=== PATIENT | female | born 1940 | race Caucasian/White ===

== ENCOUNTER 2019-12-26 11:01 | Emergency (ER) | payer MEDICARE, MEDICAID ==
[2019-12-26] MEDS ORDERED: Ondansetron 4 MG/2 ML SDV IVPUSH ONE (11:31)
--- NOTE | 2019-12-26 11:31 | EDM.PDOC ---
ED HPI GENERAL MEDICAL PROBLEM - General Chief Complaint: Abdominal Pain Stated Complaint: Nausea and vomiting Time Seen by Provider: 12/26/19 11:15 Source of Information: Reports: Patient, [facility] Records History Limitations: Reports: Other - History of Present Illness INITIAL COMMENTS - FREE TEXT/NARRATIVE: [facility] from a [facility] pt states she has been having nausea , vomiting and diarrhea for the past 3 days today was weak enough that she fell hitting her knees still retching water stools Fell this am and hit her knees, still has pain but no swelling able to ambulate states she is diabetic has bee using steroid cream on rash on arm and blood sugar levels are elevated last COVID test on sunday was negative Onset: Gradual Onset Date: 12/26/19 Duration: Getting Worse Location: Reports: Upper Extremity, Right, Lower Extremity, Left Quality: Reports: Ache Improves with: Reports: None Worsens with: Reports: None Associated Symptoms: Reports: Loss of Appetite, Malaise, Nausea/Vomiting, Weakness both knees Pain Score (Numeric/FACES): 4 - Related Data Allergies Allergy/AdvReac Type Severity Reaction Status Date / Time No Known Allergies Allergy Verified 06/17/15 15:03 Home Meds: Home Meds Hydrochlorothiazide 12.5 mg PO DAILY 09/01/14 [History] Lisinopril 40 mg PO DAILY 09/01/14 [History] Simvastatin 40 mg PO DAILY 09/01/14 [History] Zolpidem Tartrate [Ambien] 5 - 10 mg PO BEDTIME PRN 09/01/14 [History] metFORMIN HCl [Metformin ER Osmotic] 500 mg PO BID 09/01/14 [History] Cetirizine [ZyrTEC] 10 mg PO DAILY PRN 09/02/14 [History] hydrOXYzine Pamoate [Hydroxyzine Pamoate] 25 mg PO Q4H PRN 06/17/15 [History] Aspirin [Halfprin] 81 mg PO DAILY #90 tab.ec 06/30/15 [Rx] Celecoxib [CeleBREX] 200 mg PO DAILY 12/08/15 [History] Insulin Degludec [Tresiba Flextouch U-200] 50 unit SQ DAILY 12/08/15 [History] Sodium Chloride [Brillion Saline] 1 spr DANN TID 12/09/15 [History] Docusate Sodium [Colace] 100 mg PO BID #60 cap 12/27/15 [Rx] FLUoxetine [PROzac] 10 mg PO BEDTIME #90 cap 12/27/15 [Rx] Insulin Aspart [NovoLOG] See Protocol SUBCUT QIDACANDBED #5 pen 12/27/15 [Rx] Sennosides [Senna] 8.6 mg PO BID PRN #60 tablet 12/27/15 [Rx] Carbamide Peroxide [Debrox 6.5% Otic Soln] 14.8 ml OT QPM #1 bottle 12/26/19 [Rx] Cefuroxime [Ceftin] 250 mg PO BID #20 tab 12/26/19 [Rx] Lactobacillus Acidophilus [Acidophilus Lactobacilli] 1 each PO BID #60 capsule 12/26/19 [Rx] Meclizine [Antivert] 25 mg PO Q6H PRN #30 tab 12/26/19 [Rx] Past Medical History HEENT History: Reports: Hard of Hearing, Impaired Vision, Sinusitis Other HEENT History: reading glasses; 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 Cardiovascular History: Reports: High Cholesterol, Hypertension, SC, Other (See Below) Other Cardiovascular History: says had heart attack, was resuscitated, stated from low potassium Respiratory History: Reports: Asthma, Pneumonia, Recurrent, SOB Gastrointestinal History: Reports: Other (See Below) Other Gastrointestinal History: Diverticulitis Genitourinary History: Reports: UTI, Recurrent CONSULTANT DIETITIAN History: Reports: , Other (See Below) Other CONSULTANT DIETITIAN History: THREE MISCARRIAGES Musculoskeletal History: Reports: Arthritis, Back Pain, Chronic, Other (See Below) Other Musculoskeletal History: GENERALIZED ARTHRITIS for 30years Psychiatric History: Reports: Anxiety, Depression, Other (See Below) Other Psychiatric History: no longer takes meds for this. NO MEDS FOR DEPRESSION AT PRESENT TIME Endocrine/Metabolic History: Reports: Diabetes, Type II Other Endocrine/Metabolic History: takes long acting and will suppliment with novolog if necessary Hematologic History: Reports: None Immunologic History: Reports: Immunosuppression Oncologic (Cancer) History: Reports: Breast Other Oncologic History: melanoma 5-6 years ago Dermatologic History: Reports: Other (See Below) Other Dermatologic History: melanoma removed 5-6 years ago. RASHES UNDERNEATH WAN. BREASTS AT TIMES. NONE AT PRESENT TIME. - Past Surgical History Cardiovascular Surgical History: Reports: Other (See Below) Female Surgical History: Reports: Breast Biopsy, Tubal Ligation Musculoskeletal Surgical History: Reports: Arthroscopic Knee, Knee Replacement, Other (See Below) Oncologic Surgical History: Reports: Lumpectomy, Other (See Below) Social & Family History - Caffeine Use Caffeine Use: Reports: Coffee Caffeine Use Comment: 1 cup of coffee everyday ED ROS GENERAL - Review of Systems Review Of Systems: See Below Constitutional: Reports: Malaise, Weakness, Fatigue HEENT: Reports: No Symptoms Respiratory: Reports: No Symptoms Cardiovascular: Reports: No Symptoms Endocrine: Reports: No Symptoms GI/Abdominal: Reports: No Symptoms : Reports: Frequency Musculoskeletal: Reports: Other (Knee pain , bilateral) Neurological: Reports: No Symptoms Psychiatric: Reports: No Symptoms Hematologic/Lymphatic: Reports: No Symptoms Immunologic: Reports: No Symptoms ED EXAM, GENERAL - Physical Exam Exam: See Below Exam Limited By: No Limitations General Appearance: Alert, WD/WN, No Apparent Distress Eye Exam: Bilateral Eye: EOMI Ears: Normal External Exam Ear Exam: Bilateral Ear: Other (bilateral cerumen impacted in both ear canals) Nose: Normal Inspection Throat/Mouth: Normal Oropharynx Head: Atraumatic, Normocephalic Neck: Supple, Non-Tender Respiratory/Chest: Lungs Clear Cardiovascular: Regular Rate, Rhythm GI/Abdominal: Soft, Non-Tender Extremities: Normal Range of Motion. No: Normal Capillary Refill Neurological: Alert, Oriented, CN II-XII Intact Psychiatric: Normal Affect Skin Exam: Warm Course - Vital Signs Last Recorded V/S: Last Vital Signs Temp 36.1 C 12/26/19 11:01 Pulse 88 12/26/19 11:01 Resp 19 12/26/19 11:01 BP 169/77 H 12/26/19 11:01 Pulse Ox 97 12/26/19 11:01 - Orders/Labs/Meds Orders: Active Orders 24 hr Category Date Time Status EKG Documentation Completion [RC] ASDIRECTED Care 12/26/19 11:06 Active CULTURE URINE [RM] Stat Lab 12/26/19 11:55 Received EKG 12 Lead [EK] Routine Ther 12/26/19 11:06 Ordered Labs: Laboratory Tests 12/26/19 12/26/19 12/26/19 Range/Units 11:25 11:25 11:25 WBC 11.3 (4.5-12.0) X10-3/uL RBC 4.44 (3.23-5.20) x10(6)uL Hgb 13.5 (11.5-15.5) g/dL Hct 40.4 (30.0-51.3) % MCV 90.9 (80-96) fL MCH 30.4 (27.7-33.6) pg MCHC 33.5 (32.2-35.4) g/dL RDW 13.5 (11.5-15.5) % Plt Count 228 (125-369) X10(3)uL PT 10.6 (9.0-11.1) sec INR 0.98 L (1.00-1.24) Sodium 136 (135-145) mmol/L Potassium 3.9 (3.5-5.3) mmol/L Chloride 96 L (100-110) mmol/L Carbon Dioxide 28 (21-32) mmol/L BUN 12 (7-18) mg/dL Creatinine 0.9 (0.55-1.02) mg/dL Est Cr Clr Drug Dosing 35.21 mL/min Estimated GFR (MDRD) > 60 (>60) BUN/Creatinine Ratio 13.3 (9-20) Glucose 167 H (80-116) mg/dL Calcium 9.8 (8.6-10.2) mg/dL Troponin I (4.0-60.3) pg/mL NT-Pro-B Natriuret Pep (<=450) pg/mL Urine Color (YELLOW) Urine Appearance (CLEAR) Urine pH (5.0-6.5) Ur Specific [place] (1.010-1.025) Urine Protein (NEGATIVE) mg/dL Urine Glucose (UA) (NORMAL) mg/dL Urine Ketones (NEGATIVE) mg/dL Urine Occult Blood (NEGATIVE) Urine Nitrite (NEGATIVE) Urine Bilirubin (NEGATIVE) Urine Urobilinogen (NEGATIVE) mg/dL Ur Leukocyte Esterase (NEGATIVE) Urine WBC (0-5) Ur Squamous Epith Cells (NS,R,O) Urine Bacteria (NS) SARS-CoV-2 RNA (IRASEMA) (NEGATIVE) 12/26/19 12/26/19 12/26/19 Range/Units 11:25 11:53 11:55 WBC (4.5-12.0) X10-3/uL RBC (3.23-5.20) x10(6)uL Hgb (11.5-15.5) g/dL Hct (30.0-51.3) % MCV (80-96) fL MCH (27.7-33.6) pg MCHC (32.2-35.4) g/dL RDW (11.5-15.5) % Plt Count (125-369) X10(3)uL PT (9.0-11.1) sec INR (1.00-1.24) Sodium (135-145) mmol/L Potassium (3.5-5.3) mmol/L Chloride (100-110) mmol/L Carbon Dioxide (21-32) mmol/L BUN (7-18) mg/dL Creatinine (0.55-1.02) mg/dL Est Cr Clr Drug Dosing mL/min Estimated GFR (MDRD) (>60) BUN/Creatinine Ratio (9-20) Glucose (80-116) mg/dL Calcium (8.6-10.2) mg/dL Troponin I 27.7 (4.0-60.3) pg/mL NT-Pro-B Natriuret Pep 257 (<=450) pg/mL Urine Color Yellow (YELLOW) Urine Appearance Clear (CLEAR) Urine pH 6.0 (5.0-6.5) Ur Specific [place] 1.010 (1.010-1.025) Urine Protein Negative (NEGATIVE) mg/dL Urine Glucose (UA) Normal (NORMAL) mg/dL Urine Ketones Negative (NEGATIVE) mg/dL Urine Occult Blood Negative (NEGATIVE) Urine Nitrite Negative (NEGATIVE) Urine Bilirubin Negative (NEGATIVE) Urine Urobilinogen Normal (NEGATIVE) mg/dL Ur Leukocyte Esterase Moderate H (NEGATIVE) Urine WBC 40-50 H (0-5) Ur Squamous Epith Cells Few H (NS,R,O) Urine Bacteria Moderate H (NS) SARS-CoV-2 RNA (IRASEMA) Negative (NEGATIVE) Meds: Medications Discontinued Medications Generic Name Dose Route Start Last Admin Trade Name Freq PRN Reason Stop Dose Admin Ceftriaxone Sodium 1 gm/ 50 mls @ 200 mls/hr 12/26/19 12:51 12/26/19 12:59 Sodium Chloride IV 12/26/19 13:05 200 mls/hr ONETIME ONE Administration Meclizine HCl 50 mg 12/26/19 13:57 12/26/19 14:08 Antivert PO 12/26/19 13:58 50 mg ONETIME ONE Administration Ondansetron HCl 4 mg 12/26/19 11:31 12/26/19 11:45 Zofran IVPUSH 12/26/19 11:32 4 mg ONETIME ONE Administration Scopolamine 1.5 mg 12/26/19 14:10 Transderm-Scop TOP 12/26/19 14:11 ONETIME ONE - Re-Assessments/Exams Free Text/Narrative Re-Assessment/Exam: 12/26/19 12:52 had labs done, had IVF and Iv antibiotics fro UTI Given antiemetic 12/26/19 14:00 Multiple attempts made to remove cerumen from both ear s, not very successful Pt will use ear drops and then be seen in clinic to wash/ irrigate ear canals pt also felt dizzy and unstable on feet after standing her up from bed Was given meclizine and that controlled her symptoms 12/26/19 14:12 Departure - Departure Time of Disposition: 14:15 Disposition: Home, Self-Care 01 Condition: Good Clinical Impression: UTI, Urinary tract infectious disease, Nausea & vomiting, Excessive cerumen in both ear canals - Discharge Information *PRESCRIPTION DRUG MONITORING PROGRAM REVIEWED*: Not Applicable *COPY OF PRESCRIPTION DRUG MONITORING REPORT IN PATIENT KRYSTYNA: Not Applicable Prescriptions: Lactobacillus Acidophilus [Acidophilus Lactobacilli] 1 each PO BID #60 capsule Meclizine [Antivert] 25 mg PO Q6H PRN #30 tab PRN Reason: Dizziness Cefuroxime [Ceftin] 250 mg PO BID #20 tab Carbamide Peroxide [Debrox 6.5% Otic Soln] 14.8 ml OT QPM #1 bottle Instructions: Ear Drops, Adult, [id number], Urinary Tract Infection, Adult, [id number], Ear Irrigation Referrals: PCP,None [Ordering Only Provider] - Forms: ED Department Discharge, ED Department Discharge Additional Instructions: 1) make appointment with clinic to get ears irrigated to remove ear wax 2) Await urine culture results 3) continue with increased fluid intake 4) Call with any concerns Sepsis Event Note (ED) - Focused Exam Vital Signs: Vital Signs Temp Pulse Resp BP Pulse Ox 12/26/19 11:01 36.1 C 88 19 169/77 H 97 - My Orders Last 24 Hours: My Active Orders 12/26/19 11:06 EKG Documentation Completion [RC] ASDIRECTED EKG 12 Lead [EK] Routine 12/26/19 11:55 CULTURE URINE [RM] Stat - Assessment/Plan Last 24 Hours: My Active Orders 12/26/19 11:06 EKG Documentation Completion [RC] ASDIRECTED EKG 12 Lead [EK] Routine 12/26/19 11:55 CULTURE URINE [RM] Stat
[2019-12-26 11:36] VITALS: BP 169/77; PULSE 88
--- NOTE | 2019-12-26 12:21 | CR ---
INDICATION: Dizziness. CHEST, ONE VIEW: A single AP upright portable view of the chest was obtained 12/26/19 and compared with 12/12/15 and 09/01/14. The aorta appeared somewhat prominent in size and may be slightly enlarged. The aorta is tortuous with calcification in the arch. Overlying EKG leads are noted. Previous pleuroparenchymal changes at the left lung base have largely cleared with some slightly heavy markings in that area, most likely fibrotic in nature. It is difficult to exclude minimal patchy bronchopneumonia at both lung bases, however. No gross consolidating pneumonia or effusion was seen. Exogenous obesity is noted. IMPRESSION: 1. No definite acute process, but difficult to exclude minimal patchy bronchopneumonia at the lung bases. 2. ASHD with cardiomegaly. 3. Exogenous obesity. MTDD
[2019-12-26] MEDS ORDERED: cefTRIAXone 1 GM in Sodium Chloride 0.9% 50 ML IV ONE (12:51)
[2019-12-26] MEDS ORDERED: Meclizine 25 MG Tab PO ONE (13:57)
[2019-12-26] MEDS ORDERED: Scopolamine 1.5 MG Transdermal Patch TOP ONE (14:10)
== END 2019-12-26 14:20 | disposition home or self-care (01) ==
LOC: FB.ED 11:01
DX: N39.0 Urinary tract infection, site not specified (principal); R11.2 Nausea with vomiting, unspecified; H61.23 Impacted cerumen, bilateral; I10 Essential (primary) hypertension; E78.00 Pure hypercholesterolemia, unspecified; I25.2 Old myocardial infarction; J45.909 Unspecified asthma, uncomplicated; F41.9 Anxiety disorder, unspecified; F32.9 Major depressive disorder, single episode, unspecified; E11.9 Type 2 diabetes mellitus without complications; Z79.4 Long term (current) use of insulin; Z20.828 Contact with and (suspected) exposure to other viral communicable diseases; Z79.82 Long term (current) use of aspirin; Z79.899 Other long term (current) drug therapy; Z98.51 Tubal ligation status; R06.02 Shortness of breath
CPT/HCPCS: 36415; 71045; 80048; 81001; 83880; 84484; 85027; 85610; 87086; 93005; 96365; 96375; 99284; A9270; J0696; J2405; U0002

== ENCOUNTER 2020-01-03 22:01 | Inpatient (IN) | payer MEDICARE, MEDICAID ==
--- NOTE | 2020-01-03 22:46 | EDM.PDOC ---
ED HPI GENERAL MEDICAL PROBLEM - General Chief Complaint: Neuro Symptoms/Deficits Time Seen by Provider: 01/03/20 22:44 Source of Information: Reports: Old Records History Limitations: Reports: Other (Hard of hearing) - History of Present Illness INITIAL COMMENTS - FREE TEXT/NARRATIVE: Jessica is from the [facility] .She complains of dysphagia and slurred speech since yesterday. No fever,no cough. Was seen yesterday at the [facility] and [facility] a CT done,results were negve. She has a h/o anxiety and depression. - Related Data Allergies Allergy/AdvReac Type Severity Reaction Status Date / Time No Known Allergies Allergy Verified 01/03/20 22:16 Home Meds: Home Meds Hydrochlorothiazide 12.5 mg PO DAILY 09/01/14 [History] Lisinopril 40 mg PO DAILY 09/01/14 [History] Simvastatin 40 mg PO BEDTIME 09/01/14 [History] metFORMIN HCl [Metformin ER Osmotic] 500 mg PO BID 09/01/14 [History] Cetirizine [ZyrTEC] 10 mg PO DAILY 09/02/14 [History] Aspirin [Halfprin] 81 mg PO DAILY #90 tab.ec 06/30/15 [Rx] Insulin Degludec [Tresiba Flextouch U-200] 65 unit SQ 0730 12/08/15 [History] Carbamide Peroxide [Debrox 6.5% Otic Soln] 14.8 ml OT QPM #1 bottle 12/26/19 [Rx] Cefuroxime [Ceftin] 250 mg PO BID #20 tab 12/26/19 [Rx] Lactobacillus Acidophilus [Acidophilus Lactobacilli] 1 each PO BID #60 capsule 12/26/19 [Rx] Meclizine [Antivert] 25 mg PO Q6H PRN #30 tab 12/26/19 [Rx] cephALEXin [Cephalexin] 500 mg PO TID #21 tablet 01/04/20 [Rx] cephALEXin [Cephalexin] 500 mg PO TID #21 tablet 01/04/20 [Rx] Acetaminophen 650 mg PO BEDTIME 01/05/20 [History] Acetaminophen 650 mg PO Q4H PRN MDD 3 gm 01/05/20 [History] Aloe Vera/Sodium Chloride [Baden Saline Nasal Gel] 1 applic DANN TID 01/05/20 [History] Betamethasone Dipropionate [Diprosone 0.05% Oint] 1 applic TOP BID 01/05/20 [History] Cyclobenzaprine [Flexeril] 10 mg PO BEDTIME 01/05/20 [History] Docusate Sodium [Colace] 100 mg PO DAILY 01/05/20 [History] Insulin Aspart [NovoLOG] 20 units SQ ACDINNER 01/05/20 [History] Insulin Aspart [NovoLOG] 25 units SQ 0730,1130 01/05/20 [History] Loperamide [Imodium] 2 mg PO ASDIRECTED PRN MDD 8MG 01/05/20 [History] Mag Hydrox/Aluminum Hyd/Simeth [Mylanta Maximum Strength Liq] 10 ml PO QID PRN 01/05/20 [History] Magnesium Hydroxide [Milk of Magnesia] 30 ml PO DAILY PRN 01/05/20 [History] Melatonin 10 mg PO BEDTIME 01/05/20 [History] Mirtazapine 15 mg PO BEDTIME 01/05/20 [History] Simethicone 80 mg CHEW DAILY 01/05/20 [History] bisacodyL [Dulcolax] 10 mg RECTAL Q3D PRN 01/05/20 [History] guaiFENesin [Robitussin] 10 ml PO Q4H PRN 01/05/20 [History] Past Medical History HEENT History: Reports: Hard of Hearing, Impaired Vision, Sinusitis Other HEENT History: reading glasses; 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 Cardiovascular History: Reports: High Cholesterol, Hypertension, [place], Other (See Below) Other Cardiovascular History: says had heart attack, was resuscitated, stated from low potassium Respiratory History: Reports: Asthma, Pneumonia, Recurrent, SOB Gastrointestinal History: Reports: Other (See Below) Other Gastrointestinal History: Diverticulitis Genitourinary History: Reports: UTI, Recurrent HAM TRIMMER History: Reports: , Other (See Below) Other HAM TRIMMER History: THREE MISCARRIAGES Musculoskeletal History: Reports: Arthritis, Back Pain, Chronic, Other (See Below) Other Musculoskeletal History: GENERALIZED ARTHRITIS for 30years Psychiatric History: Reports: Anxiety, Depression, Other (See Below) Other Psychiatric History: no longer takes meds for this. NO MEDS FOR DEPRESSION AT PRESENT TIME Endocrine/Metabolic History: Reports: Diabetes, Type II Other Endocrine/Metabolic History: takes long acting and will suppliment with novolog if necessary Hematologic History: Reports: None Immunologic History: Reports: Immunosuppression Oncologic (Cancer) History: Reports: Breast Other Oncologic History: melanoma 5-6 years ago Dermatologic History: Reports: Other (See Below) Other Dermatologic History: melanoma removed 5-6 years ago. RASHES UNDERNEATH WAN. BREASTS AT TIMES. NONE AT PRESENT TIME. - Past Surgical History Cardiovascular Surgical History: Reports: Other (See Below) Female Surgical History: Reports: Breast Biopsy, Tubal Ligation Musculoskeletal Surgical History: Reports: Arthroscopic Knee, Knee Replacement, Other (See Below) Oncologic Surgical History: Reports: Lumpectomy, Other (See Below) Social & Family History - Caffeine Use Caffeine Use: Reports: Coffee Caffeine Use Comment: 1 cup of coffee everyday ED ROS GENERAL - Review of Systems Review Of Systems: Comprehensive ROS is negative, except as noted in HPI. ED EXAM, NEURO - Physical Exam Exam: See Below Exam Limited By: No Limitations General Appearance: Alert Ears: Normal External Exam, Normal TMs Throat/Mouth: Normal Inspection, Dysphagia Head Exam: Atraumatic Neck: Normal Inspection Respiratory/Chest: No Respiratory Distress Neurological: Alert, Other (Slurred speech) Back Exam: Normal Inspection Extremities: Normal Inspection Psychiatric: Normal Affect Skin Exam: Warm Course - Vital Signs Last Recorded V/S: Last Vital Signs Temp 97.9 F 01/05/20 16:00 Pulse 72 01/05/20 16:00 Resp 16 01/05/20 16:00 BP 159/65 H 01/05/20 16:00 Pulse Ox 96 01/05/20 16:00 - Orders/Labs/Meds Orders: Medication Orders Dexamethasone (Decadron) 6 mg IVPUSH DAILY [facility] Stop: 01/07/20 09:01 Dextrose/Water (Dextrose 50% In Water) 50 ml IVPUSH ASDIRECTED PRN PRN Reason: Hypoglycemia Diphenhydramine HCl (Benadryl) 25 mg IVPUSH Q6H PRN PRN Reason: Allergies Last Admin: 01/04/20 13:25 Dose: 25 mg Documented by: WILLIAMS Enoxaparin Sodium (Lovenox) 40 mg SUBCUT Q24H ZION Last Admin: 01/05/20 13:06 Dose: 40 mg Documented by: Admin: 01/04/20 13:24 Dose: 40 mg Documented by: WILLIAMS Glucagon (Glucagen) 1 mg IM ASDIRECTED PRN PRN Reason: Hypoglycemia Sodium Chloride (Normal Saline) 1,000 mls @ 100 mls/hr IV ASDIRECTED [facility] Last Admin: 01/05/20 10:17 Dose: 100 mls/hr Documented by: Infusion: 01/05/20 10:13 Dose: 100 mls/hr Documented by: Admin: 01/05/20 00:13 Dose: 100 mls/hr Documented by: Infusion: 01/04/20 23:25 Dose: 100 mls/hr Documented by: Admin: 01/04/20 13:25 Dose: 100 mls/hr Documented by: WILLIAMS Ampicillin Sodium/Sulbactam (Sodium 1.5 gm/ Sodium Chloride) 50 mls @ 150 mls/hr IV Q8H [facility] Last Admin: 01/05/20 13:00 Dose: 150 mls/hr Documented by: Admin: 01/05/20 05:05 Dose: 150 mls/hr Documented by: Admin: 01/04/20 21:13 Dose: 150 mls/hr Documented by: DALTON Insulin Human Lispro (Humalog) 0 unit SUBCUT TIDMEALS [facility]; Protocol Last Admin: 01/05/20 18:01 Dose: 8 units Documented by: GUILLERMO Cosigned by: ARMINDA Admin: 01/05/20 13:09 Dose: 3 units Documented by: GUILLERMO Cosigned by: ARMINDA Sodium Chloride (Saline Flush) 10 ml FLUSH ASDIRECTED PRN PRN Reason: Keep Vein Open Last Admin: 01/04/20 13:24 Dose: 10 ml Documented by: Admin: 01/04/20 09:30 Dose: 10 ml Documented by: DONOVAN Labs: Laboratory Tests 01/03/20 01/03/20 01/03/20 Range/Units 22:17 22:20 22:20 WBC 15.9 H (3.0-10.3) x10-3/uL RBC 4.47 (3.60-5.20) x10(6)uL Hgb 13.4 (11.4-15.5) g/dL Hct 40.5 (34.2-48.2) % MCV 90.7 (76.7-100.5) fL MCH 30.0 (23.9-33.9) pg MCHC 33.1 (31.9-34.8) g/dL RDW 14.3 (12.3-16.5) % Plt Count 227 (151-488) x10(3)uL MPV 8.4 (7.1-12.4) fL Neut % (Auto) 78.0 H (30.8-76.2) % Lymph % (Auto) 15.3 L (18.4-52.1) % Meigs % (Auto) 5.6 (4.4-15.7) % Eos % (Auto) 0.8 (0.6-8.1) % Baso % (Auto) 0.3 (0.2-1.5) % Neut # (Auto) 12.4 H (1.5-6.3) x10-3/uL Lymph # (Auto) 2.4 (1.0-4.4) x10-3/uL Meigs # (Auto) 0.9 (0.3-1.0) x10-3/uL Eos # (Auto) 0.1 (0.0-0.8) x10-3/uL Baso # (Auto) 0.0 (0.0-0.1) x10-3/uL Sodium 135 (135-145) mmol/L Potassium 4.0 (3.5-5.3) mmol/L Chloride 97 L (100-110) mmol/L Carbon Dioxide 28 (21-32) mmol/L BUN 13 (7-18) mg/dL Creatinine 1.0 (0.55-1.02) mg/dL Est Cr Clr Drug Dosing 38.10 mL/min Estimated GFR (MDRD) 53 L (>60) BUN/Creatinine Ratio 13.0 (9-20) Glucose 169 H (80-116) mg/dL POC Glucose 145 H (74-100) mg/dL Lactic Acid (0.4-2.0) mmol/L Calcium 9.7 (8.6-10.2) mg/dL Total Bilirubin 0.5 (0.1-1.3) mg/dL AST 26 H (5-25) IU/L ALT 41 H (12-36) U/L Alkaline Phosphatase 76 (56-112) IU/L Troponin I (4.0-60.3) pg/mL C-Reactive Protein (0.5-0.9) mg/dL Total Protein 7.2 (6.0-8.0) g/dL Albumin 3.5 (3.2-4.6) g/dL Globulin 3.7 g/dL Albumin/Globulin Ratio 1.0 SARS-CoV-2 RNA (IRASEMA) (NEGATIVE) Group A Strep (PCR) (NEGATIVE) 01/03/20 01/03/20 01/03/20 Range/Units 22:20 22:20 22:20 WBC (3.0-10.3) x10-3/uL RBC (3.60-5.20) x10(6)uL Hgb (11.4-15.5) g/dL Hct (34.2-48.2) % MCV (76.7-100.5) fL MCH (23.9-33.9) pg MCHC (31.9-34.8) g/dL RDW (12.3-16.5) % Plt Count (151-488) x10(3)uL MPV (7.1-12.4) fL Neut % (Auto) (30.8-76.2) % Lymph % (Auto) (18.4-52.1) % Meigs % (Auto) (4.4-15.7) % Eos % (Auto) (0.6-8.1) % Baso % (Auto) (0.2-1.5) % Neut # (Auto) (1.5-6.3) x10-3/uL Lymph # (Auto) (1.0-4.4) x10-3/uL Meigs # (Auto) (0.3-1.0) x10-3/uL Eos # (Auto) (0.0-0.8) x10-3/uL Baso # (Auto) (0.0-0.1) x10-3/uL Sodium (135-145) mmol/L Potassium (3.5-5.3) mmol/L Chloride (100-110) mmol/L Carbon Dioxide (21-32) mmol/L BUN (7-18) mg/dL Creatinine (0.55-1.02) mg/dL Est Cr Clr Drug Dosing mL/min Estimated GFR (MDRD) (>60) BUN/Creatinine Ratio (9-20) Glucose (80-116) mg/dL POC Glucose (74-100) mg/dL Lactic Acid 2.7 H* (0.4-2.0) mmol/L Calcium (8.6-10.2) mg/dL Total Bilirubin (0.1-1.3) mg/dL AST (5-25) IU/L ALT (12-36) U/L Alkaline Phosphatase (56-112) IU/L Troponin I 22.7 (4.0-60.3) pg/mL C-Reactive Protein 0.9 (0.5-0.9) mg/dL Total Protein (6.0-8.0) g/dL Albumin (3.2-4.6) g/dL Globulin g/dL Albumin/Globulin Ratio SARS-CoV-2 RNA (IRASEMA) (NEGATIVE) Group A Strep (PCR) (NEGATIVE) 01/03/20 01/04/20 Range/Units 23:50 09:00 WBC (3.0-10.3) x10-3/uL RBC (3.60-5.20) x10(6)uL Hgb (11.4-15.5) g/dL Hct (34.2-48.2) % MCV (76.7-100.5) fL MCH (23.9-33.9) pg MCHC (31.9-34.8) g/dL RDW (12.3-16.5) % Plt Count (151-488) x10(3)uL MPV (7.1-12.4) fL Neut % (Auto) (30.8-76.2) % Lymph % (Auto) (18.4-52.1) % Meigs % (Auto) (4.4-15.7) % Eos % (Auto) (0.6-8.1) % Baso % (Auto) (0.2-1.5) % Neut # (Auto) (1.5-6.3) x10-3/uL Lymph # (Auto) (1.0-4.4) x10-3/uL Meigs # (Auto) (0.3-1.0) x10-3/uL Eos # (Auto) (0.0-0.8) x10-3/uL Baso # (Auto) (0.0-0.1) x10-3/uL Sodium (135-145) mmol/L Potassium (3.5-5.3) mmol/L Chloride (100-110) mmol/L Carbon Dioxide (21-32) mmol/L BUN (7-18) mg/dL Creatinine (0.55-1.02) mg/dL Est Cr Clr Drug Dosing mL/min Estimated GFR (MDRD) (>60) BUN/Creatinine Ratio (9-20) Glucose (80-116) mg/dL POC Glucose (74-100) mg/dL Lactic Acid (0.4-2.0) mmol/L Calcium (8.6-10.2) mg/dL Total Bilirubin (0.1-1.3) mg/dL AST (5-25) IU/L ALT (12-36) U/L Alkaline Phosphatase (56-112) IU/L Troponin I (4.0-60.3) pg/mL C-Reactive Protein (0.5-0.9) mg/dL Total Protein (6.0-8.0) g/dL Albumin (3.2-4.6) g/dL Globulin g/dL Albumin/Globulin Ratio SARS-CoV-2 RNA (IRASEMA) Negative (NEGATIVE) Group A Strep (PCR) Negative (NEGATIVE) Meds: Medications Generic Name Dose Route Start Last Admin Trade Name Freq PRN Reason Stop Dose Admin Dexamethasone 6 mg 01/06/20 09:00 Decadron IVPUSH 01/07/20 09:01 DAILY ZION Dextrose/Water 50 ml 01/05/20 11:41 Dextrose 50% In Water IVPUSH ASDIRECTED PRN Hypoglycemia Diphenhydramine HCl 25 mg 01/04/20 12:07 01/04/20 13:25 Benadryl IVPUSH 25 mg Q6H PRN Administration Allergies Enoxaparin Sodium 40 mg 01/04/20 12:30 01/05/20 13:06 Lovenox SUBCUT 40 mg Q24H ZION Administration Glucagon 1 mg 01/05/20 11:41 Glucagen IM ASDIRECTED PRN Hypoglycemia Sodium Chloride 1,000 mls @ 100 mls/hr 01/04/20 12:15 01/05/20 10:17 Normal Saline IV 100 mls/hr ASDIRECTED ZION Administration Ampicillin Sodium/Sulbactam 50 mls @ 150 mls/hr 01/04/20 21:00 01/05/20 13:00 Sodium 1.5 gm/ Sodium Chloride IV 150 mls/hr Q8H ZION Administration Insulin Human Lispro 0 unit 01/05/20 12:00 01/05/20 18:01 Humalog SUBCUT 8 units TIDMEALS ZION Administration Protocol Sodium Chloride 10 ml 01/03/20 22:42 01/04/20 13:24 Saline Flush FLUSH 10 ml ASDIRECTED PRN Administration Keep Vein Open Discontinued Medications Generic Name Dose Route Start Last Admin Trade Name Freq PRN Reason Stop Dose Admin Ceftriaxone Sodium 1 gm 01/04/20 00:07 01/04/20 00:19 Rocephin IVPUSH 01/04/20 00:08 1 gm NOW STA Administration Dexamethasone 8 mg 01/04/20 09:00 01/04/20 09:27 Decadron IVPUSH 01/04/20 09:01 8 mg ONETIME ONE Administration Dexamethasone 6 mg 01/05/20 09:00 01/05/20 09:37 Dexamethasone IVPUSH 01/07/20 09:01 6 mg DAILY ZION Administration Sodium Chloride 500 mls @ 500 mls/hr 01/04/20 00:03 01/04/20 00:10 Normal Saline IV 01/04/20 01:02 500 mls/hr .BOLUS ONE Administration Ampicillin Sodium/Sulbactam 50 mls @ 150 mls/hr 01/04/20 13:00 01/04/20 21:41 Sodium 1.5 gm/ Sodium Chloride IV Not Given Q8H [facility]ION Iopamidol 75 ml 01/03/20 23:08 01/03/20 23:12 Isovue-370 (76%) IV 01/03/20 23:09 Not Given ONETIME ONE Iopamidol 100 ml 01/03/20 23:13 01/03/20 23:15 Isovue-370 (76%) IV 01/03/20 23:14 75 ml ONETIME ONE Administration Departure - Departure Time of Disposition: 19:09 Disposition: Admitted As Inpatient 64 Clinical Impression: Dysphagia - Discharge Information Sepsis Event Note (ED) - Evaluation Sepsis Screening Result: No Definite Risk - Problem List & Annotations (1) Dysphagia SNOMED Code(s): 10905653, 096447205 Code(s): R13.10 - DYSPHAGIA, UNSPECIFIED Status: Acute Current Visit: Yes Qualifiers: Dysphagia type: oral phase Qualified Code(s): R13.11 - Dysphagia, oral phase (2) Slurred speech SNOMED Code(s): 399612680 Code(s): R47.81 - SLURRED SPEECH Status: Acute Current Visit: Yes - Problem List Review Problem List Initiated/Reviewed/Updated: Yes - Assessment/Plan Plan: 500 mg IV NS. 1 g of Rocephin.Possible admit
[2020-01-03] MEDS ORDERED: Iopamidol 755 Mg/ML 75 ML Bottle IV ONE (23:08)
[2020-01-03] MEDS ORDERED: Iopamidol 755 Mg/ML 100 ML Bottle IV ONE (23:13)
[2020-01-04] MEDS ORDERED: Sodium Chloride 0.9% 500 ML IV ONE (00:03)
[2020-01-04] MEDS ORDERED: cefTRIAXone 1 GM Vial IVPUSH STA (00:07)
--- NOTE | 2020-01-04 08:59 | PCM.SN.2 ---
- Free Text/Narrative Note: 79-year-old female was seen by Dr. Puckett for dysphagia. She is really unable to swallow anything area in the etiology of her dysphagia is not known what it is felt that it may be infectious or inflammatory secondary to some mild inflammation of the uvula area as seen on CT scan of her neck. It could also be an acute stroke that was not seen on CT. In any event, the patient cannot be discharged. She will need admission for IV fluids and IV antibiotics and IV steroids for PT and OT and speech. This plan of care will require at least a 2 midnight hospital stay. Therefore the patient will be admitted as an inpatient. I did call and discuss the patient's case with Dr. Alfaro, hospitalist, and she will admit the patient. I am sending testing for Covid now. The patient has received Rocephin 1 g IV. I will also give the patient Decadron 8 mg IV. Further orders per Dr. Alfaro.
[2020-01-04] MEDS ORDERED: Dexamethasone 4 MG/ML SDV IVPUSH ONE (09:00)
[2020-01-04] MEDS: Sodium Chloride 0.9% 10 ML Syringe FLUSH PRN ×2 (09:30→13:24)
--- NOTE | 2020-01-04 12:18 | PCM.HP.2 ---
H&P History of Present Illness - General Date of Service: 01/04/20 Admit Problem/Dx: Admission Diagnosis/Problem Admission Diagnosis/Problem Dysphagia Source of Information: Patient (limited), EMS Notes Reviewed, Provider History Limitations: Reports: Physical Impairment (HARD OF HEARING, ) - History of Present Illness Initial Comments - Free Text/Narative: Jessica is from the [facility]. She complains of dysphagia and slurred speech since Sunday. No fever, no cough reported to ER. Was seen 12/31 at the [facility] and had a CT done, results were negitive, had ear irrigated and was treated for tonsillitis. She has a h/o anxiety, depression, hypertension, allergies. History limited as patient very hard of hearing and difficult to understand her speech. No facial droop reported. [facility] staff reported decreased intake and progressive weakness. CT head negative for stroke, soft neck showed swelling of uvula, no tonsillar enlargement, no esophageal mass. CXR negative. Covid negative. Received Rocephin 1 g and Dexamethasone 8 mg IV in ER. - Related Data Allergies/Adverse Reactions: Allergies Allergy/AdvReac Type Severity Reaction Status Date / Time No Known Allergies Allergy Verified 01/03/20 22:16 Home Medications: Home Meds Hydrochlorothiazide 12.5 mg PO DAILY 09/01/14 [History] Lisinopril 40 mg PO DAILY 09/01/14 [History] Simvastatin 40 mg PO DAILY 09/01/14 [History] Zolpidem Tartrate [Ambien] 5 - 10 mg PO BEDTIME PRN 09/01/14 [History] metFORMIN HCl [Metformin ER Osmotic] 500 mg PO BID 09/01/14 [History] Cetirizine [ZyrTEC] 10 mg PO DAILY PRN 09/02/14 [History] hydrOXYzine Pamoate [Hydroxyzine Pamoate] 25 mg PO Q4H PRN 06/17/15 [History] Aspirin [Halfprin] 81 mg PO DAILY #90 tab.ec 06/30/15 [Rx] Celecoxib [CeleBREX] 200 mg PO DAILY 12/08/15 [History] Insulin Degludec [Tresiba Flextouch U-200] 50 unit SQ DAILY 12/08/15 [History] Sodium Chloride [Goddard Saline] 1 spr DANN TID 12/09/15 [History] Docusate Sodium [Colace] 100 mg PO BID #60 cap 12/27/15 [Rx] FLUoxetine [PROzac] 10 mg PO BEDTIME #90 cap 12/27/15 [Rx] Insulin Aspart [NovoLOG] See Protocol SUBCUT QIDACANDBED #5 pen 12/27/15 [Rx] Sennosides [Senna] 8.6 mg PO BID PRN #60 tablet 12/27/15 [Rx] Carbamide Peroxide [Debrox 6.5% Otic Soln] 14.8 ml OT QPM #1 bottle 12/26/19 [Rx] Cefuroxime [Ceftin] 250 mg PO BID #20 tab 12/26/19 [Rx] Lactobacillus Acidophilus [Acidophilus Lactobacilli] 1 each PO BID #60 capsule 12/26/19 [Rx] Meclizine [Antivert] 25 mg PO Q6H PRN #30 tab 12/26/19 [Rx] cephALEXin [Cephalexin] 500 mg PO TID #21 tablet 01/04/20 [Rx] cephALEXin [Cephalexin] 500 mg PO TID #21 tablet 01/04/20 [Rx] Past Medical History HEENT History: Reports: Hard of Hearing, Impaired Vision, Sinusitis Other HEENT History: reading glasses; 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 Cardiovascular History: Reports: High Cholesterol, Hypertension, MS, Other (See Below) Other Cardiovascular History: says had heart attack, was resuscitated, stated from low potassium Respiratory History: Reports: Asthma, Pneumonia, Recurrent, SOB Gastrointestinal History: Reports: Other (See Below) Other Gastrointestinal History: Diverticulitis Genitourinary History: Reports: UTI, Recurrent TRANSFER SPECIALIST History: Reports: , Other (See Below) Other OB/BYN History: THREE MISCARRIAGES Musculoskeletal History: Reports: Arthritis, Back Pain, Chronic, Other (See Below) Other Musculoskeletal History: GENERALIZED ARTHRITIS for 30years Psychiatric History: Reports: Anxiety, Depression, Other (See Below) Other Psychiatric History: no longer takes meds for this. NO MEDS FOR DEPRESSION AT PRESENT TIME Endocrine/Metabolic History: Reports: Diabetes, Type II Other Endocrine/Metabolic History: takes long acting and will suppliment with n ovolog if necessary Hematologic History: Reports: None Immunologic History: Reports: Immunosuppression Oncologic (Cancer) History: Reports: Breast Other Oncologic History: melanoma 5-6 years ago Dermatologic History: Reports: Other (See Below) Other Dermatologic History: melanoma removed 5-6 years ago. RASHES UNDERNEATH WAN. BREASTS AT TIMES. NONE AT PRESENT TIME. - Past Surgical History Cardiovascular Surgical History: Reports: Other (See Below) Female Surgical History: Reports: Breast Biopsy, Tubal Ligation Musculoskeletal Surgical History: Reports: Arthroscopic Knee, Knee Replacement, Other (See Below) Oncologic Surgical History: Reports: Lumpectomy, Other (See Below) Social & Family History - Family History Family Medical History: Unobtainable - Tobacco Use Tobacco Use Status *Q: Unknown Ever Used Tobacco - Caffeine Use Caffeine Use: Reports: Coffee Caffeine Use Comment: 1 cup of coffee everyday H&P Review of Systems - Review of Systems: Review Of Systems: Unable To Obtain Reason Not Obtained: hard of hearing Exam - Exam Exam: See Below - Vital Signs Vital Signs: Last Vital Signs Temp 98.1 F 01/04/20 11:55 Pulse 89 01/04/20 11:55 Resp 16 01/04/20 11:55 BP 163/81 H 01/04/20 11:55 Pulse Ox 93 L 01/04/20 11:55 Weight: 182 lb - Exam General: Alert, Cooperative. No: Mild Distress HEENT: PERRLA, Conjunctiva Clear, Nares Patent, Other (Dry mucosa, tongue enlarged, cannot visualize uvula and posterior pharynx). No: Hearing Intact Neck: Supple, Trachea Midline, Lymphadenopathy Lungs: Clear to Auscultation, Normal Respiratory Effort Cardiovascular: Regular Rate, Regular Rhythm GI/Abdominal Exam: Normal Bowel Sounds, Soft, Non-Tender, No Distention (Female) Exam: Deferred Rectal (Female) Exam: Deferred Extremities: No Pedal Edema Peripheral Pulses: 2+: Radial (L), Radial (R) Skin: Warm, Dry, Other (surgical scar on right knee) - Patient Data Lab Results Last 24 hrs: Laboratory Results - last 24 hr 01/03/20 01/03/20 01/03/20 Range/Units 22:17 22:20 22:20 WBC 15.9 H (3.0-10.3) x10-3/uL RBC 4.47 (3.60-5.20) x10(6)uL Hgb 13.4 (11.4-15.5) g/dL Hct 40.5 (34.2-48.2) % MCV 90.7 (76.7-100.5) fL MCH 30.0 (23.9-33.9) pg MCHC 33.1 (31.9-34.8) g/dL RDW 14.3 (12.3-16.5) % Plt Count 227 (151-488) x10(3)uL MPV 8.4 (7.1-12.4) fL Neut % (Auto) 78.0 H (30.8-76.2) % Lymph % (Auto) 15.3 L (18.4-52.1) % [place] % (Auto) 5.6 (4.4-15.7) % Eos % (Auto) 0.8 (0.6-8.1) % Baso % (Auto) 0.3 (0.2-1.5) % Neut # (Auto) 12.4 H (1.5-6.3) x10-3/uL Lymph # (Auto) 2.4 (1.0-4.4) x10-3/uL [place] # (Auto) 0.9 (0.3-1.0) x10-3/uL Eos # (Auto) 0.1 (0.0-0.8) x10-3/uL Baso # (Auto) 0.0 (0.0-0.1) x10-3/uL Sodium 135 (135-145) mmol/L Potassium 4.0 (3.5-5.3) mmol/L Chloride 97 L (100-110) mmol/L Carbon Dioxide 28 (21-32) mmol/L BUN 13 (7-18) mg/dL Creatinine 1.0 (0.55-1.02) mg/dL Est Cr Clr Drug Dosing 38.10 mL/min Estimated GFR (MDRD) 53 L (>60) BUN/Creatinine Ratio 13.0 (9-20) Glucose 169 H (80-116) mg/dL POC Glucose 145 H (74-100) mg/dL Lactic Acid (0.4-2.0) mmol/L Calcium 9.7 (8.6-10.2) mg/dL Total Bilirubin 0.5 (0.1-1.3) mg/dL AST 26 H (5-25) IU/L ALT 41 H (12-36) U/L Alkaline Phosphatase 76 (56-112) IU/L Troponin I (4.0-60.3) pg/mL C-Reactive Protein (0.5-0.9) mg/dL Total Protein 7.2 (6.0-8.0) g/dL Albumin 3.5 (3.2-4.6) g/dL Globulin 3.7 g/dL Albumin/Globulin Ratio 1.0 SARS-CoV-2 RNA (IRASEMA) (NEGATIVE) Group A Strep (PCR) (NEGATIVE) 01/03/20 01/03/20 01/03/20 Range/Units 22:20 22:20 22:20 WBC (3.0-10.3) x10-3/uL RBC (3.60-5.20) x10(6)uL Hgb (11.4-15.5) g/dL Hct (34.2-48.2) % MCV (76.7-100.5) fL MCH (23.9-33.9) pg MCHC (31.9-34.8) g/dL RDW (12.3-16.5) % Plt Count (151-488) x10(3)uL MPV (7.1-12.4) fL Neut % (Auto) (30.8-76.2) % Lymph % (Auto) (18.4-52.1) % [place] % (Auto) (4.4-15.7) % Eos % (Auto) (0.6-8.1) % Baso % (Auto) (0.2-1.5) % Neut # (Auto) (1.5-6.3) x10-3/uL Lymph # (Auto) (1.0-4.4) x10-3/uL [place] # (Auto) (0.3-1.0) x10-3/uL Eos # (Auto) (0.0-0.8) x10-3/uL Baso # (Auto) (0.0-0.1) x10-3/uL Sodium (135-145) mmol/L Potassium (3.5-5.3) mmol/L Chloride (100-110) mmol/L Carbon Dioxide (21-32) mmol/L BUN (7-18) mg/dL Creatinine (0.55-1.02) mg/dL Est Cr Clr Drug Dosing mL/min Estimated GFR (MDRD) (>60) BUN/Creatinine Ratio (9-20) Glucose (80-116) mg/dL POC Glucose (74-100) mg/dL Lactic Acid 2.7 H* (0.4-2.0) mmol/L Calcium (8.6-10.2) mg/dL Total Bilirubin (0.1-1.3) mg/dL AST (5-25) IU/L ALT (12-36) U/L Alkaline Phosphatase (56-112) IU/L Troponin I 22.7 (4.0-60.3) pg/mL C-Reactive Protein 0.9 (0.5-0.9) mg/dL Total Protein (6.0-8.0) g/dL Albumin (3.2-4.6) g/dL Globulin g/dL Albumin/Globulin Ratio SARS-CoV-2 RNA (IRASEMA) (NEGATIVE) Group A Strep (PCR) (NEGATIVE) 01/03/20 01/04/20 Range/Units 23:50 09:00 WBC (3.0-10.3) x10-3/uL RBC (3.60-5.20) x10(6)uL Hgb (11.4-15.5) g/dL Hct (34.2-48.2) % MCV (76.7-100.5) fL MCH (23.9-33.9) pg MCHC (31.9-34.8) g/dL RDW (12.3-16.5) % Plt Count (151-488) x10(3)uL MPV (7.1-12.4) fL Neut % (Auto) (30.8-76.2) % Lymph % (Auto) (18.4-52.1) % [place] % (Auto) (4.4-15.7) % Eos % (Auto) (0.6-8.1) % Baso % (Auto) (0.2-1.5) % Neut # (Auto) (1.5-6.3) x10-3/uL Lymph # (Auto) (1.0-4.4) x10-3/uL [place] # (Auto) (0.3-1.0) x10-3/uL Eos # (Auto) (0.0-0.8) x10-3/uL Baso # (Auto) (0.0-0.1) x10-3/uL Sodium (135-145) mmol/L Potassium (3.5-5.3) mmol/L Chloride (100-110) mmol/L Carbon Dioxide (21-32) mmol/L BUN (7-18) mg/dL Creatinine (0.55-1.02) mg/dL Est Cr Clr Drug Dosing mL/min Estimated GFR (MDRD) (>60) BUN/Creatinine Ratio (9-20) Glucose (80-116) mg/dL POC Glucose (74-100) mg/dL Lactic Acid (0.4-2.0) mmol/L Calcium (8.6-10.2) mg/dL Total Bilirubin (0.1-1.3) mg/dL AST (5-25) IU/L ALT (12-36) U/L Alkaline Phosphatase (56-112) IU/L Troponin I (4.0-60.3) pg/mL C-Reactive Protein (0.5-0.9) mg/dL Total Protein (6.0-8.0) g/dL Albumin (3.2-4.6) g/dL Globulin g/dL Albumin/Globulin Ratio SARS-CoV-2 RNA (IRASEMA) Negative (NEGATIVE) Group A Strep (PCR) Negative (NEGATIVE) Result Diagrams: 01/03/20 22:20 01/03/20 22:20 Sepsis Event Note - Evaluation Sepsis Screening Result: No Definite Risk - Focused Exam Vital Signs: Vital Signs Temp Temp Pulse Resp BP Pulse Ox 01/04/20 11:55 98.1 F 89 16 163/81 H 93 L 01/04/20 08:38 87 18 140/62 95 01/04/20 06:15 97.6 F 93 20 151/81 H 96 01/04/20 00:30 97.8 F 85 20 150/118 H 95 - Problem List (1) Uvulitis SNOMED Code(s): 565504720 ICD Code: K12.2 - CELLULITIS AND ABSCESS OF MOUTH Status: Acute Current Visit: Yes (2) Dysphagia SNOMED Code(s): 77343550, 726095502 ICD Code: R13.10 - DYSPHAGIA, UNSPECIFIED Status: Acute Current Visit: Yes Qualifiers: Dysphagia type: oral phase Qualified Code(s): R13.11 - Dysphagia, oral phase (3) Rapidly progressive weakness SNOMED Code(s): 21804644 ICD Code: R53.1 - WEAKNESS Status: Acute Current Visit: Yes (4) Slurred speech SNOMED Code(s): 152093936 ICD Code: R47.81 - SLURRED SPEECH Status: Acute Current Visit: Yes (5) History of total knee arthroplasty SNOMED Code(s): 8758970099724, 8073604616352, 97669139213266 ICD Code: Z96.659 - PRESENCE OF UNSPECIFIED ARTIFICIAL KNEE JOINT Status: Chronic Priority: High Current Visit: No (6) Uncontrolled diabetes mellitus type 2 with peripheral artery disease SNOMED Code(s): 14326123, 906134866 ICD Code: E11.51 - TYPE 2 DIABETES W DIABETIC PERIPHERAL ANGIOPATH W/O GANGRENE; E11.65 - TYPE 2 DIABETES MELLITUS WITH HYPERGLYCEMIA Status: Chronic Current Visit: No (7) Combined hyperlipidemia SNOMED Code(s): 868666521 ICD Code: E78.2 - MIXED HYPERLIPIDEMIA Status: Chronic Current Visit: No (8) Obesity (BMI 30-39.9) SNOMED Code(s): 901475354, 838539244 ICD Code: E66.9 - OBESITY, UNSPECIFIED Status: Chronic Current Visit: No Problem List Initiated/Reviewed/Updated: Yes Orders Last 24hrs: Active Orders 24 hr Category Date Time Status Admission Status [Patient Status] [ADT] Routine ADT 01/04/20 09:06 Active Intake and Output [RC] QSHIFT Care 01/04/20 12:05 Ordered Oxygen Therapy [RC] PRN Care 01/04/20 12:04 Ordered Up With Assistance [RC] ASDIRECTED Care 01/04/20 12:04 Ordered Up to Chair [RC] ASDIRECTED Care 01/04/20 12:04 Ordered VTE/DVT Education [RC] Per Unit Routine Care 01/04/20 12:04 Ordered Vital Signs [RC] Q4H Care 01/04/20 12:04 Ordered OT Evaluation and Treatment [CONS] Routine Cons 01/04/20 12:04 Ordered PT Evaluation and Treatment [CONS] Routine Cons 01/04/20 12:04 Ordered PLATE HANGER Evaluation and Treatment [CONS] Routine Cons 01/04/20 12:04 Ordered Clear Liquid Diet [DIET] Diet 01/04/20 Dinner Ordered Chest 1V Frontal [CR] Stat Exams 01/03/20 22:42 Taken Head wo Cont [CT] Stat Exams 01/03/20 23:00 Taken Soft Tissue Neck w Cont [CT] Stat Exams 01/03/20 22:42 Taken Ampicillin/Sulbactam Na [Unasyn] 1.5 gm Med 01/04/20 13:00 Ordered Sodium Chloride 0.9% [Normal Saline] 50 ml IV Q8H Enoxaparin [Lovenox] Med 01/04/20 12:15 Ordered 40 mg SUBCUT Q24H Sodium Chloride 0.9% [Normal Saline] 1,000 ml Med 01/04/20 12:15 Ordered IV ASDIRECTED Sodium Chloride 0.9% [Saline Flush] Med 01/03/20 22:42 Active 10 ml FLUSH ASDIRECTED PRN diphenhydrAMINE [Benadryl] Med 01/04/20 12:07 Ordered 25 mg IVPUSH Q6H PRN Antiembolic Hose [OM.PC] Per Unit Routine Oth 01/04/20 12:05 Ordered Peripheral IV Insertion Adult [OM.PC] Routine Oth 01/03/20 22:42 Ordered Medication Orders Diphenhydramine HCl (Benadryl) 25 mg IVPUSH Q6H PRN PRN Reason: Allergies Enoxaparin Sodium (Lovenox) 40 mg SUBCUT Q24H [facility] Sodium Chloride (Normal Saline) 1,000 mls @ 100 mls/hr IV ASDIRECTED [facility] Ampicillin Sodium/Sulbactam (Sodium 1.5 gm/ Sodium Chloride) 50 mls @ 150 mls/hr IV Q8H [facility] Sodium Chloride (Saline Flush) 10 ml FLUSH ASDIRECTED PRN PRN Reason: Keep Vein Open Last Admin: 01/04/20 09:30 Dose: 10 ml Documented by: DONOVAN Assessment/Plan Comment:: 1. Admit for dysphagia, progressive weakness, uvulitis for IV antibiotics, IV fluids, further studies. 2. Uvulitis: Unasyn 1.5 g IV q6h, strep was negative. Dexamethasone 8 mg IV, given in ER, reassess tomorrow if we will repeat. Add Benadryl 25 mg IV q6h as needed. NS at 100 ml/hr. 3. Dysphagia: most likely secondary to #2, but if not improved with antibiotics, steroids & antihistamines will get MRI head/neck tomorrow, Speech therapy consult. 4. Diet: clear liquids, if does okay with these will resume home oral medications. 5. DM: monitor blood sugars, and SSI as needed. 6. DVT: teds, Lovenox 40 mg SQ daily. 7. CODE: DNR per records sent from [facility]. - Mortality Measure Prognosis:: Poor
[2020-01-04] MEDS: Enoxaparin 40 MG/0.4 ML Syringe SUBCUT SCH (13:24)
[2020-01-04] MEDS: Sodium Chloride 0.9% 1,000 ML IV SCH (13:25)
[2020-01-04] MEDS: diphenhydrAMINE 50 MG/ML SDV IVPUSH PRN (13:25)
[2020-01-04] MEDS: Ampicillin/Sulbactam Na 1.5 GM in Sodium Chloride 0.9% 50 ML IV SCH ×3 (13:28→21:41)
[2020-01-04] MEDS ORDERED: Ampicillin/Sulbactam Na 1.5 GM in Sodium Chloride 0.9% 50 ML IV SCH (21:10)
[2020-01-05] MEDS: Sodium Chloride 0.9% 1,000 ML IV SCH ×3 (00:13→20:41)
[2020-01-05] MEDS: Ampicillin/Sulbactam Na 1.5 GM in Sodium Chloride 0.9% 50 ML IV SCH ×3 (05:05→20:52)
[2020-01-05] MEDS ORDERED: Dexamethasone 4 MG/ML 5 ML MDV IVPUSH SCH (09:00)
[2020-01-05] MEDS ORDERED: Glucagon,Human Recombinant 1 MG Vial IM PRN (11:41)
[2020-01-05] MEDS ORDERED: 50% Dextrose in Water 50 ML Syringe IVPUSH PRN (11:41)
--- NOTE | 2020-01-05 12:46 | PCM.PN ---
- General Info Date of Service: 01/05/20 Subjective Update: Jessica is doing better today, more alert, swallowing a little better, tried some jello and clear liquids but had coughing after this. Speech unable to see today. Hard of hearing, hears best on right, can't see out of the right eye. She is confused as to why she is here and what is going on. - Patient Data Vitals - Most Recent: Last Vital Signs Temp 97.9 F 01/05/20 04:00 Pulse 95 01/05/20 04:00 Resp 16 01/05/20 04:00 BP 145/62 H 01/05/20 04:00 Pulse Ox 93 L 01/05/20 04:00 Weight - Most Recent: 182 lb I&O - Last 24 Hours: Intake & Output 01/04/20 01/05/20 01/05/20 22:59 06:59 14:59 Intake Total 800 805 Balance 800 805 Lab Results Last 24 Hours: Laboratory Results - last 24 hr 01/04/20 01/05/20 01/05/20 Range/Units 18:25 10:40 10:40 WBC 10.3 (3.0-10.3) x10-3/uL RBC 4.13 (3.60-5.20) x10(6)uL Hgb 12.5 (11.4-15.5) g/dL Hct 37.3 (34.2-48.2) % MCV 90.3 (76.7-100.5) fL MCH 30.3 (23.9-33.9) pg MCHC 33.5 (31.9-34.8) g/dL RDW 13.9 (12.3-16.5) % Plt Count 216 (151-488) x10(3)uL MPV 8.2 (7.1-12.4) fL Neut % (Auto) 80.6 H (30.8-76.2) % Lymph % (Auto) 12.4 L (18.4-52.1) % [place] % (Auto) 5.8 (4.4-15.7) % Eos % (Auto) 0.4 L (0.6-8.1) % Baso % (Auto) 0.8 (0.2-1.5) % Neut # (Auto) 8.3 H (1.5-6.3) x10-3/uL Lymph # (Auto) 1.3 (1.0-4.4) x10-3/uL [place] # (Auto) 0.6 (0.3-1.0) x10-3/uL Eos # (Auto) 0.0 (0.0-0.8) x10-3/uL Baso # (Auto) 0.1 (0.0-0.1) x10-3/uL Sodium 138 (135-145) mmol/L Potassium 3.9 (3.5-5.3) mmol/L Chloride 103 D (100-110) mmol/L Carbon Dioxide 27 (21-32) mmol/L BUN 16 (7-18) mg/dL Creatinine 0.9 (0.55-1.02) mg/dL Est Cr Clr Drug Dosing 42.33 mL/min Estimated GFR (MDRD) > 60 (>60) BUN/Creatinine Ratio 17.8 (9-20) Glucose 270 H D (80-116) mg/dL POC Glucose 268 H (74-100) mg/dL Calcium 8.6 (8.6-10.2) mg/dL 11/16/20 Range/Units 11:22 WBC (3.0-10.3) x10-3/uL RBC (3.60-5.20) x10(6)uL Hgb (11.4-15.5) g/dL Hct (34.2-48.2) % MCV (76.7-100.5) fL MCH (23.9-33.9) pg MCHC (31.9-34.8) g/dL RDW (12.3-16.5) % Plt Count (151-488) x10(3)uL MPV (7.1-12.4) fL Neut % (Auto) (30.8-76.2) % Lymph % (Auto) (18.4-52.1) % [place] % (Auto) (4.4-15.7) % Eos % (Auto) (0.6-8.1) % Baso % (Auto) (0.2-1.5) % Neut # (Auto) (1.5-6.3) x10-3/uL Lymph # (Auto) (1.0-4.4) x10-3/uL [place] # (Auto) (0.3-1.0) x10-3/uL Eos # (Auto) (0.0-0.8) x10-3/uL Baso # (Auto) (0.0-0.1) x10-3/uL Sodium (135-145) mmol/L Potassium (3.5-5.3) mmol/L Chloride (100-110) mmol/L Carbon Dioxide (21-32) mmol/L BUN (7-18) mg/dL Creatinine (0.55-1.02) mg/dL Est Cr Clr Drug Dosing mL/min Estimated GFR (MDRD) (>60) BUN/Creatinine Ratio (9-20) Glucose (80-116) mg/dL POC Glucose 272 H (74-100) mg/dL Calcium (8.6-10.2) mg/dL Med Orders - Current: Current Medications Dexamethasone (Dexamethasone) 6 mg IVPUSH DAILY [facility] Stop: 01/07/20 09:01 Last Admin: 01/05/20 09:37 Dose: 6 mg Documented by: Dextrose/Water (Dextrose 50% In Water) 50 ml IVPUSH ASDIRECTED PRN PRN Reason: Hypoglycemia Diphenhydramine HCl (Benadryl) 25 mg IVPUSH Q6H PRN PRN Reason: Allergies Last Admin: 01/04/20 13:25 Dose: 25 mg Documented by: Enoxaparin Sodium (Lovenox) 40 mg SUBCUT Q24H [facility] Last Admin: 01/04/20 13:24 Dose: 40 mg Documented by: Glucagon (Glucagen) 1 mg IM ASDIRECTED PRN PRN Reason: Hypoglycemia Sodium Chloride (Normal Saline) 1,000 mls @ 100 mls/hr IV ASDIRECTED [facility] Last Admin: 01/05/20 10:17 Dose: 100 mls/hr Documented by: Ampicillin Sodium/Sulbactam (Sodium 1.5 gm/ Sodium Chloride) 50 mls @ 150 mls/hr IV Q8H [facility] Last Admin: 01/05/20 05:05 Dose: 150 mls/hr Documented by: Insulin Human Lispro (Humalog) 0 unit SUBCUT TIDMEALS [facility]; Protocol Sodium Chloride (Saline Flush) 10 ml FLUSH ASDIRECTED PRN PRN Reason: Keep Vein Open Last Admin: 01/04/20 13:24 Dose: 10 ml Documented by: Discontinued Medications Ceftriaxone Sodium (Rocephin) 1 gm IVPUSH NOW STA Stop: 01/04/20 00:08 Last Admin: 01/04/20 00:19 Dose: 1 gm Documented by: Dexamethasone (Decadron) 8 mg IVPUSH ONETIME ONE Stop: 01/04/20 09:01 Last Admin: 01/04/20 09:27 Dose: 8 mg Documented by: Sodium Chloride (Normal Saline) 500 mls @ 500 mls/hr IV .BOLUS ONE Stop: 01/04/20 01:02 Last Admin: 01/04/20 00:10 Dose: 500 mls/hr Documented by: Ampicillin Sodium/Sulbactam (Sodium 1.5 gm/ Sodium Chloride) 50 mls @ 150 mls/hr IV Q8H [facility] Last Admin: 01/04/20 21:41 Dose: Not Given Documented by: Iopamidol (Isovue-370 (76%)) 75 ml IV ONETIME ONE Stop: 01/03/20 23:09 Last Admin: 01/03/20 23:12 Dose: Not Given Documented by: Iopamidol (Isovue-370 (76%)) 100 ml IV ONETIME ONE Stop: 01/03/20 23:14 Last Admin: 01/03/20 23:15 Dose: 75 ml Documented by: - Exam General: Alert, Cooperative, No Acute Distress HEENT: Other (tongue: decreased swelling) Neck: Supple, Trachea Midline. No: Lymphadenopathy Lungs: Clear to Auscultation, Normal Respiratory Effort. No: Stridor, Wheezing GI/Abdominal Exam: Normal Bowel Sounds, Soft, Non-Tender, No Distention (Female) Exam: Deferred Extremities: No Pedal Edema Psy/Mental Status: Anxious Sepsis Event Note - Evaluation Sepsis Screening Result: No Definite Risk - Focused Exam Vital Signs: Vital Signs Temp Pulse Resp BP Pulse Ox 01/05/20 04:00 97.9 F 95 16 145/62 H 93 L - Problem List & Annotations (1) Uvulitis SNOMED Code(s): 987475958 Code(s): K12.2 - CELLULITIS AND ABSCESS OF MOUTH Status: Acute Current Visit: Yes (2) Acute hearing loss SNOMED Code(s): 63580898, 82514835 Code(s): H91.90 - UNSPECIFIED HEARING LOSS, UNSPECIFIED EAR Status: Acute Current Visit: Yes (3) Dysphagia SNOMED Code(s): 57407983, 474199560 Code(s): R13.10 - DYSPHAGIA, UNSPECIFIED Status: Acute Current Visit: Yes Qualifiers: Dysphagia type: oral phase Qualified Code(s): R13.11 - Dysphagia, oral phase (4) Rapidly progressive weakness SNOMED Code(s): 26054274 Code(s): R53.1 - WEAKNESS Status: Acute Current Visit: Yes (5) Slurred speech SNOMED Code(s): 376507786 Code(s): R47.81 - SLURRED SPEECH Status: Acute Current Visit: Yes (6) History of total knee arthroplasty SNOMED Code(s): 3590387687993, 2692132835741, 93953998531875 Code(s): Z96.659 - PRESENCE OF UNSPECIFIED ARTIFICIAL KNEE JOINT Status: Chronic Priority: High Current Visit: No (7) Uncontrolled diabetes mellitus type 2 with peripheral artery disease SNOMED Code(s): 72587161, 729257345 Code(s): E11.51 - TYPE 2 DIABETES W DIABETIC PERIPHERAL ANGIOPATH W/O GANGRENE; E11.65 - TYPE 2 DIABETES MELLITUS WITH HYPERGLYCEMIA Status: Chronic Current Visit: No (8) Combined hyperlipidemia SNOMED Code(s): 014937749 Code(s): E78.2 - MIXED HYPERLIPIDEMIA Status: Chronic Current Visit: No (9) Obesity (BMI 30-39.9) SNOMED Code(s): 888522153, 063535184 Code(s): E66.9 - OBESITY, UNSPECIFIED Status: Chronic Current Visit: No - Problem List Review Problem List Initiated/Reviewed/Updated: Yes - My Orders Last 24 Hours: My Active Orders 01/04/20 12:04 Oxygen Therapy [RC] .PRN Up With Assistance [RC] ASDIRECTED Up to Chair [RC] ASDIRECTED VTE/DVT Education [RC] 08 Vital Signs [RC] Q4H OT Evaluation and Treatment [CONS] Routine PT Evaluation and Treatment [CONS] Routine SHEET TESTER Evaluation and Treatment [CONS] Routine 01/04/20 12:05 Intake and Output [RC] 06,14,22 Antiembolic Hose [OM.PC] Per Unit Routine 01/04/20 12:07 diphenhydrAMINE [Benadryl] 25 mg IVPUSH Q6H PRN 01/04/20 12:15 Sodium Chloride 0.9% [Normal Saline] 1,000 ml IV ASDIRECTED 01/04/20 12:30 Enoxaparin [Lovenox] 40 mg SUBCUT Q24H 01/04/20 Dinner Clear Liquid Diet [DIET] 01/04/20 21:00 Ampicillin/Sulbactam Na [Unasyn] 1.5 gm Sodium Chloride 0.9% [Normal Saline] 50 ml IV Q8H 01/05/20 07:54 Accu Check [Blood Glucose Check, Bedside] [RC] TIDMEALS 01/05/20 09:00 dexAMETHasone 6 mg IVPUSH DAILY 01/05/20 10:34 Code Status [Resuscitation Status] Routine 01/05/20 11:41 Dextrose 50% in Water 50 ml IVPUSH ASDIRECTED PRN Glucagon,Human Recombinant [GlucaGen] 1 mg IM ASDIRECTED PRN 01/05/20 12:00 Insulin Lispro [HumaLOG] See Protocol SUBCUT TIDMEALS - Plan Plan:: 1. Uvulitis: Unasyn 1.5 g IV q6h. Dexamethasone 6 mg IV daily. Benadryl 25 mg IV q6h as needed. NS at 100 ml/hr. 2. Spoke with her PCP, Dr Mccann, he stated hearing loss has been acute, he had gotten CT head which was negative. So will get MRI head/neck. 3. UTI: Dr Mccann also reported that she had a UA done in clinic which was po sitive and the culture came back today growing enterococcus. He will be faxing over the culture report. 4. Dysphagia: most likely secondary to #2, Speech therapy consult. 5. Diet: clear liquids, if does okay with these will resume home oral medications. 6. DM: monitor blood sugars, and SSI as needed.
[2020-01-05] MEDS ORDERED: Insulin Lispro 100 Unit/ML 3 ML KwikPen SUBCUT ONE (13:05)
[2020-01-05] MEDS: Enoxaparin 40 MG/0.4 ML Syringe SUBCUT SCH (13:06)
[2020-01-05] MEDS: Insulin Lispro 100 Unit/ML 3 ML KwikPen SUBCUT SCH ×2 (13:09→18:01)
[2020-01-06] MEDS: Ampicillin/Sulbactam Na 1.5 GM in Sodium Chloride 0.9% 50 ML IV SCH ×3 (05:16→20:03)
[2020-01-06] MEDS: Sodium Chloride 0.9% 1,000 ML IV SCH ×2 (06:42→17:10)
[2020-01-06] MEDS: Dexamethasone 4 MG/ML SDV IVPUSH SCH (09:05)
[2020-01-06] MEDS: Insulin Lispro 100 Unit/ML 3 ML KwikPen SUBCUT SCH ×3 (09:11→17:21)
[2020-01-06] MEDS: Enoxaparin 40 MG/0.4 ML Syringe SUBCUT SCH (12:53)
--- NOTE | 2020-01-06 18:09 | PCM.PN ---
- General Info Date of Service: 01/06/20 Subjective Update: Jessica is speaking a little better today but still not swallowing well to take anything by mouth, unsure of when speech therapy can come due to therapist out sick. She is cognitively aware, discussed feeding tube is she does not improve enough to take food and medications by mouth. She would like to wait a few days to see if she improves enough to eat on her own. Spoke with her son Laci who is aware of her condition. MRI brain did show acute ischemic change in jihan which is consistent with her symptoms: dysphagia, weakness, protruding tongue, hearing loss. - Patient Data Vitals - Most Recent: Last Vital Signs Temp 97.5 F 01/06/20 16:00 Pulse 66 01/06/20 16:00 Resp 22 H 01/06/20 16:00 BP 157/66 H 01/06/20 16:00 Pulse Ox 98 01/06/20 16:00 Weight - Most Recent: 182 lb I&O - Last 24 Hours: Intake & Output 01/06/20 01/06/20 01/06/20 06:59 14:59 22:59 Intake Total 779 694 Balance 779 694 Lab Results Last 24 Hours: Laboratory Results - last 24 hr 01/06/20 01/06/20 01/06/20 Range/Units 06:10 06:10 17:09 WBC 9.9 (3.0-10.3) x10-3/uL RBC 4.04 (3.60-5.20) x10(6)uL Hgb 12.1 (11.4-15.5) g/dL Hct 36.6 (34.2-48.2) % MCV 90.6 (76.7-100.5) fL MCH 29.9 (23.9-33.9) pg MCHC 33.0 (31.9-34.8) g/dL RDW 14.5 (12.3-16.5) % Plt Count 217 (151-488) x10(3)uL MPV 8.3 (7.1-12.4) fL Neut % (Auto) 70.2 (30.8-76.2) % Lymph % (Auto) 22.4 (18.4-52.1) % [place] % (Auto) 7.1 (4.4-15.7) % Eos % (Auto) 0.1 L (0.6-8.1) % Baso % (Auto) 0.2 (0.2-1.5) % Neut # (Auto) 7.0 H (1.5-6.3) x10-3/uL Lymph # (Auto) 2.2 (1.0-4.4) x10-3/uL [place] # (Auto) 0.7 (0.3-1.0) x10-3/uL Eos # (Auto) 0.0 (0.0-0.8) x10-3/uL Baso # (Auto) 0.0 (0.0-0.1) x10-3/uL Sodium 142 (135-145) mmol/L Potassium 3.7 (3.5-5.3) mmol/L Chloride 106 (100-110) mmol/L Carbon Dioxide 25 (21-32) mmol/L BUN 18 (7-18) mg/dL Creatinine 0.9 (0.55-1.02) mg/dL Est Cr Clr Drug Dosing 42.33 mL/min Estimated GFR (MDRD) > 60 (>60) BUN/Creatinine Ratio 20.0 (9-20) Glucose 196 H (80-116) mg/dL POC Glucose 241 H (74-100) mg/dL Calcium 8.3 L (8.6-10.2) mg/dL Triglycerides 147 (15-150) mg/dL Cholesterol 168 (50-200) mg/dL LDL Cholesterol Direct 95 (60-130) mg/dL HDL Cholesterol 43 (40-75) mg/dL Cholesterol/HDL Ratio 3.9 (0-5) Med Orders - Current: Current Medications Dexamethasone (Decadron) 6 mg IVPUSH DAILY [facility] Stop: 01/08/20 09:01 Last Admin: 01/06/20 09:05 Dose: 6 mg Documented by: Dextrose/Water (Dextrose 50% In Water) 50 ml IVPUSH ASDIRECTED PRN PRN Reason: Hypoglycemia Diphenhydramine HCl (Benadryl) 25 mg IVPUSH Q6H PRN PRN Reason: Allergies Last Admin: 01/04/20 13:25 Dose: 25 mg Documented by: Enoxaparin Sodium (Lovenox) 40 mg SUBCUT Q24H [facility] Last Admin: 01/06/20 12:53 Dose: 40 mg Documented by: Glucagon (Glucagen) 1 mg IM ASDIRECTED PRN PRN Reason: Hypoglycemia Sodium Chloride (Normal Saline) 1,000 mls @ 100 mls/hr IV ASDIRECTED [facility] Last Admin: 01/06/20 17:10 Dose: 100 mls/hr Documented by: Ampicillin Sodium/Sulbactam (Sodium 1.5 gm/ Sodium Chloride) 50 mls @ 150 mls/hr IV Q8H [facility] Last Admin: 01/06/20 12:54 Dose: 150 mls/hr Documented by: Insulin Human Lispro (Humalog) 0 unit SUBCUT TIDMEALS [facility]; Protocol Last Admin: 01/06/20 17:21 Dose: 6 units Documented by: Sodium Chloride (Saline Flush) 10 ml FLUSH ASDIRECTED PRN PRN Reason: Keep Vein Open Last Admin: 01/04/20 13:24 Dose: 10 ml Documented by: Discontinued Medications Ceftriaxone Sodium (Rocephin) 1 gm IVPUSH NOW [facility] Stop: 01/04/20 00:08 Last Admin: 01/04/20 00:19 Dose: 1 gm Documented by: Dexamethasone (Decadron) 8 mg IVPUSH ONETIME ONE Stop: 01/04/20 09:01 Last Admin: 01/04/20 09:27 Dose: 8 mg Documented by: Dexamethasone (Dexamethasone) 6 mg IVPUSH DAILY [facility] Stop: 01/07/20 09:01 Last Admin: 01/05/20 09:37 Dose: 6 mg Documented by: Sodium Chloride (Normal Saline) 500 mls @ 500 mls/hr IV .BOLUS ONE Stop: 01/04/20 01:02 Last Admin: 01/04/20 00:10 Dose: 500 mls/hr Documented by: Ampicillin Sodium/Sulbactam (Sodium 1.5 gm/ Sodium Chloride) 50 mls @ 150 mls/hr IV Q8H [facility] Last Admin: 01/04/20 21:41 Dose: Not Given Documented by: Iopamidol (Isovue-370 (76%)) 75 ml IV ONETIME ONE Stop: 01/03/20 23:09 Last Admin: 01/03/20 23:12 Dose: Not Given Documented by: Iopamidol (Isovue-370 (76%)) 100 ml IV ONETIME ONE Stop: 01/03/20 23:14 Last Admin: 01/03/20 23:15 Dose: 75 ml Documented by: - Exam General: Alert, Oriented, Cooperative, No Acute Distress Lungs: Clear to Auscultation, Normal Respiratory Effort Cardiovascular: Regular Rate, Regular Rhythm GI/Abdominal Exam: Soft, Non-Tender, No Distention, Abnormal Bowel Sounds (hypoactive) Neurological: No: Normal Speech (little clearer today, can make out more words) Sepsis Event Note - Evaluation Sepsis Screening Result: No Definite Risk - Focused Exam Vital Signs: Vital Signs Temp Pulse Pulse Resp BP Pulse Ox 01/06/20 16:00 97.5 F 66 22 H 157/66 H 98 01/06/20 12:00 97.5 F 66 14 157/66 H 95 01/06/20 08:00 98.1 F 76 24 H 123/59 L 94 L - Problem List & Annotations (1) Cerebrovascular accident (CVA) of pontine structure SNOMED Code(s): 002016072 Code(s): I63.50 - CEREB INFRC DUE TO UNSP OCCLS OR STENOS OF UNSP CEREB ARTERY Status: Acute Current Visit: Yes (2) Uvulitis SNOMED Code(s): 005325047 Code(s): K12.2 - CELLULITIS AND ABSCESS OF MOUTH Status: Acute Current Visit: Yes (3) Acute hearing loss SNOMED Code(s): 96141686, 79584336 Code(s): H91.90 - UNSPECIFIED HEARING LOSS, UNSPECIFIED EAR Status: Acute Current Visit: Yes (4) Dysphagia SNOMED Code(s): 38159144, 977488814 Code(s): R13.10 - DYSPHAGIA, UNSPECIFIED Status: Acute Current Visit: Yes Qualifiers: Dysphagia type: oral phase Qualified Code(s): R13.11 - Dysphagia, oral phase (5) Rapidly progressive weakness SNOMED Code(s): 44716415 Code(s): R53.1 - WEAKNESS Status: Acute Current Visit: Yes (6) Slurred speech SNOMED Code(s): 958291892 Code(s): R47.81 - SLURRED SPEECH Status: Acute Current Visit: Yes (7) History of total knee arthroplasty SNOMED Code(s): 2577348929169, 2119365060759, 34468297151016 Code(s): Z96.659 - PRESENCE OF UNSPECIFIED ARTIFICIAL KNEE JOINT Status: Chronic Priority: High Current Visit: No (8) Uncontrolled diabetes mellitus type 2 with peripheral artery disease SNOMED Code(s): 48999298, 898953126 Code(s): E11.51 - TYPE 2 DIABETES W DIABETIC PERIPHERAL ANGIOPATH W/O GANGRENE; E11.65 - TYPE 2 DIABETES MELLITUS WITH HYPERGLYCEMIA Status: Chronic Current Visit: No (9) Combined hyperlipidemia SNOMED Code(s): 432369926 Code(s): E78.2 - MIXED HYPERLIPIDEMIA Status: Chronic Current Visit: No (10) Obesity (BMI 30-39.9) SNOMED Code(s): 133926643, 852047480 Code(s): E66.9 - OBESITY, UNSPECIFIED Status: Chronic Current Visit: No - Problem List Review Problem List Initiated/Reviewed/Updated: Yes - My Orders Last 24 Hours: My Active Orders 01/06/20 09:00 dexAMETHasone [Decadron] 6 mg IVPUSH DAILY - Plan Plan:: 1. Pontine CVA on MRI: speech therapy unable to come today due to illness. Spoke with patient about feeding tube, wants to wait a few days to see if she gets better. PT/OT evaluate & treat. 2. Uvulitis: Unasyn 1.5 g IV q6h. Dexamethasone 6 mg IV daily. Benadryl 25 mg IV q6h as needed. NS at 100 ml/hr. 3. UTI: Urine culture(in chart) enterococcus, sensitive to ampicillin which she is already on. 4. Dysphagia: most likely secondary to #1, Speech therapy consult pending. 5. DM: monitor blood sugars, and SSI as needed. 6. Diet will keep clears and do nursing bedside attempts with swallowing until speech can see her. 7. [facility] need [place] [facility], patient would prefer [facility].
[2020-01-07] MEDS: Sodium Chloride 0.9% 1,000 ML IV SCH ×3 (03:17→23:05)
[2020-01-07] MEDS: Ampicillin/Sulbactam Na 1.5 GM in Sodium Chloride 0.9% 50 ML IV SCH ×3 (04:13→20:42)
[2020-01-07] MEDS: Acetaminophen 650 MG Supp RECTAL PRN ×2 (06:34→10:37)
[2020-01-07] MEDS: Dexamethasone 4 MG/ML SDV IVPUSH SCH (08:14)
[2020-01-07] MEDS: Insulin Lispro 100 Unit/ML 3 ML KwikPen SUBCUT SCH ×3 (08:16→17:09)
[2020-01-07] MEDS: Enoxaparin 40 MG/0.4 ML Syringe SUBCUT SCH (12:00)
--- NOTE | 2020-01-07 14:00 | PCM.PN ---
- General Info Date of Service: 01/07/20 Subjective Update: Liseth failed nursing bedside swallow, is due to have speech therapy this afternoon. Had discussed feeding tube with her yesterday with Elaina Cuevas present, she is willing to do but would like to give it some time to see if she improves on her own. Urinating but no bowel movements but has not eaten since admission. - Patient Data Vitals - Most Recent: Last Vital Signs Temp 97.5 F 01/07/20 08:00 Pulse 60 01/07/20 08:00 Resp 18 01/07/20 08:00 BP 144/60 H 01/07/20 08:00 Pulse Ox 95 01/07/20 08:00 Weight - Most Recent: 182 lb I&O - Last 24 Hours: Intake & Output 01/06/20 01/07/20 01/07/20 22:59 06:59 14:59 Intake Total 864 624 Balance 864 624 Lab Results Last 24 Hours: Laboratory Results - last 24 hr 01/06/20 01/06/20 01/07/20 Range/Units 12:32 17:09 05:45 POC Glucose 256 H 241 H 150 H (74-100) mg/dL 01/07/20 Range/Units 11:48 POC Glucose 217 H (74-100) mg/dL Med Orders - Current: Current Medications Acetaminophen (Tylenol) 650 mg RECTAL Q4H PRN PRN Reason: Pain/Fever Last Admin: 01/07/20 10:37 Dose: 650 mg Documented by: Dexamethasone (Decadron) 6 mg IVPUSH DAILY [facility] Stop: 01/08/20 09:01 Last Admin: 01/07/20 08:14 Dose: 6 mg Documented by: Dextrose/Water (Dextrose 50% In Water) 50 ml IVPUSH ASDIRECTED PRN PRN Reason: Hypoglycemia Diphenhydramine HCl (Benadryl) 25 mg IVPUSH Q6H PRN PRN Reason: Allergies Last Admin: 01/04/20 13:25 Dose: 25 mg Documented by: Enoxaparin Sodium (Lovenox) 40 mg SUBCUT Q24H [facility] Last Admin: 01/07/20 12:00 Dose: 40 mg Documented by: Glucagon (Glucagen) 1 mg IM ASDIRECTED PRN PRN Reason: Hypoglycemia Sodium Chloride (Normal Saline) 1,000 mls @ 100 mls/hr IV ASDIRECTED [facility] Last Admin: 01/07/20 13:05 Dose: 100 mls/hr Documented by: Ampicillin Sodium/Sulbactam (Sodium 1.5 gm/ Sodium Chloride) 50 mls @ 150 mls/hr IV Q8H [facility] Last Admin: 01/07/20 13:07 Dose: 150 mls/hr Documented by: Insulin Human Lispro (Humalog) 0 unit SUBCUT TIDMEALS [facility]; Protocol Last Admin: 01/07/20 12:01 Dose: 4 units Documented by: Sodium Chloride (Saline Flush) 10 ml FLUSH ASDIRECTED PRN PRN Reason: Keep Vein Open Last Admin: 01/04/20 13:24 Dose: 10 ml Documented by: Discontinued Medications Ceftriaxone Sodium (Rocephin) 1 gm IVPUSH NOW [facility] Stop: 01/04/20 00:08 Last Admin: 01/04/20 00:19 Dose: 1 gm Documented by: Dexamethasone (Decadron) 8 mg IVPUSH ONETIME ONE Stop: 01/04/20 09:01 Last Admin: 01/04/20 09:27 Dose: 8 mg Documented by: Dexamethasone (Dexamethasone) 6 mg IVPUSH DAILY [facility] Stop: 01/07/20 09:01 Last Admin: 01/05/20 09:37 Dose: 6 mg Documented by: Sodium Chloride (Normal Saline) 500 mls @ 500 mls/hr IV .BOLUS ONE Stop: 01/04/20 01:02 Last Admin: 01/04/20 00:10 Dose: 500 mls/hr Documented by: Ampicillin Sodium/Sulbactam (Sodium 1.5 gm/ Sodium Chloride) 50 mls @ 150 mls/hr IV Q8H [facility] Last Admin: 01/04/20 21:41 Dose: Not Given Documented by: Iopamidol (Isovue-370 (76%)) 75 ml IV ONETIME ONE Stop: 01/03/20 23:09 Last Admin: 01/03/20 23:12 Dose: Not Given Documented by: Iopamidol (Isovue-370 (76%)) 100 ml IV ONETIME ONE Stop: 01/03/20 23:14 Last Admin: 01/03/20 23:15 Dose: 75 ml Documented by: - Exam General: Alert, Oriented, Cooperative, No Acute Distress HEENT: Other (Increased oral secretions) Neck: Trachea Midline Lungs: Clear to Auscultation (transmitted upper airway sounds), Normal Respiratory Effort. No: Wheezing Cardiovascular: Regular Rate, Regular Rhythm GI/Abdominal Exam: Soft, Non-Tender, No Distention, Abnormal Bowel Sounds (hypoactive) (Female) Exam: Deferred Peripheral Pulses: 2+: Radial (L), Radial (R) Neurological: No New Focal Deficit. No: Normal Speech Sepsis Event Note - Evaluation Sepsis Screening Result: No Definite Risk - Focused Exam Vital Signs: Vital Signs Temp Temp Pulse Resp BP Pulse Ox 01/07/20 08:00 97.5 F 60 18 144/60 H 95 01/07/20 04:00 97.8 F 72 18 133/69 96 - Problem List & Annotations (1) Cerebrovascular accident (CVA) of pontine structure SNOMED Code(s): 833030631 Code(s): I63.50 - CEREB INFRC DUE TO UNSP OCCLS OR STENOS OF UNSP CEREB ARTERY Status: Acute Current Visit: Yes (2) Uvulitis SNOMED Code(s): 858099019 Code(s): K12.2 - CELLULITIS AND ABSCESS OF MOUTH Status: Acute Current Visit: Yes (3) Acute hearing loss SNOMED Code(s): 71113245, 33655596 Code(s): H91.90 - UNSPECIFIED HEARING LOSS, UNSPECIFIED EAR Status: Acute Current Visit: Yes (4) Dysphagia SNOMED Code(s): 50407859, 699483957 Code(s): R13.10 - DYSPHAGIA, UNSPECIFIED Status: Acute Current Visit: Yes Qualifiers: Dysphagia type: oral phase Qualified Code(s): R13.11 - Dysphagia, oral phase (5) Rapidly progressive weakness SNOMED Code(s): 87790386 Code(s): R53.1 - WEAKNESS Status: Acute Current Visit: Yes (6) Slurred speech SNOMED Code(s): 525041826 Code(s): R47.81 - SLURRED SPEECH Status: Acute Current Visit: Yes (7) History of total knee arthroplasty SNOMED Code(s): 9808520612396, 4485349832495, 55618157446522 Code(s): Z96.659 - PRESENCE OF UNSPECIFIED ARTIFICIAL KNEE JOINT Status: Chronic Priority: High Current Visit: No (8) Uncontrolled diabetes mellitus type 2 with peripheral artery disease SNOMED Code(s): 08878881, 599583854 Code(s): E11.51 - TYPE 2 DIABETES W DIABETIC PERIPHERAL ANGIOPATH W/O GANGRENE; E11.65 - TYPE 2 DIABETES MELLITUS WITH HYPERGLYCEMIA Status: Chronic Current Visit: No (9) Combined hyperlipidemia SNOMED Code(s): 615707703 Code(s): E78.2 - MIXED HYPERLIPIDEMIA Status: Chronic Current Visit: No (10) Obesity (BMI 30-39.9) SNOMED Code(s): 585972549, 799395183 Code(s): E66.9 - OBESITY, UNSPECIFIED Status: Chronic Current Visit: No - Problem List Review Problem List Initiated/Reviewed/Updated: Yes - My Orders Last 24 Hours: My Active Orders 01/07/20 05:46 Acetaminophen [Tylenol] 650 mg RECTAL Q4H PRN - Plan Plan:: 1. Pontine CVA on MRI: speech therapy today. Spoke with patient about feeding tube, wants to wait a few days to see if she gets better. PT/OT following, she had some nystagmus and dizziness with their assessment, some ataxia and trouble with finger to nose tests. Spoke with Dr Murphy about feeding tube in event she would require it, stated he could place it beginning of next week if needed. 2. Uvulitis: Unasyn 1.5 g IV q6h. Dexamethasone 6 mg IV daily, last dose tomorrow. Benadryl 25 mg IV q6h as needed. NS at 100 ml/hr. 3. UTI: Urine culture(in chart) enterococcus, sensitive to ampicillin, day 4 4. Dysphagia: most likely secondary to #1, Speech therapy consult pending. 5. DM: monitor blood sugars, and SSI as needed. 6. Diet will keep clears and do nursing bedside attempts with swallowing until speech can see her. 7. Will need fdc placement, patient would prefer [facility].
[2020-01-08] MEDS: Ampicillin/Sulbactam Na 1.5 GM in Sodium Chloride 0.9% 50 ML IV SCH ×3 (04:36→20:58)
--- NOTE | 2020-01-08 07:49 | PCM.CONS ---
H&P History of Present Illness - General Date of Service: 01/08/20 Admit Problem/Dx: Admission Diagnosis/Problem Admission Diagnosis/Problem Dysphagia - History of Present Illness Initial Comments - Free Text/Narative: Pt recently admitted with a pontine cva, slurred speech and difficulty swallowing. She failed her swallowing tests and a feeding tube is recommended. consulted for a PEG tube placement. - Related Data Allergies/Adverse Reactions: Allergies Allergy/AdvReac Type Severity Reaction Status Date / Time No Known Allergies Allergy Verified 01/03/20 22:16 Home Medications: Home Meds Hydrochlorothiazide 12.5 mg PO DAILY 09/01/14 [History] Lisinopril 40 mg PO DAILY 09/01/14 [History] Simvastatin 40 mg PO BEDTIME 09/01/14 [History] metFORMIN HCl [Metformin ER Osmotic] 500 mg PO BID 09/01/14 [History] Cetirizine [ZyrTEC] 10 mg PO DAILY 09/02/14 [History] Aspirin [Halfprin] 81 mg PO DAILY #90 tab.ec 06/30/15 [Rx] Insulin Degludec [Tresiba Flextouch U-200] 65 unit SQ 0730 12/08/15 [History] Carbamide Peroxide [Debrox 6.5% Otic Soln] 14.8 ml OT QPM #1 bottle 12/26/19 [Rx] Cefuroxime [Ceftin] 250 mg PO BID #20 tab 12/26/19 [Rx] Lactobacillus Acidophilus [Acidophilus Lactobacilli] 1 each PO BID #60 capsule 12/26/19 [Rx] Meclizine [Antivert] 25 mg PO Q6H PRN #30 tab 12/26/19 [Rx] cephALEXin [Cephalexin] 500 mg PO TID #21 tablet 01/04/20 [Rx] cephALEXin [Cephalexin] 500 mg PO TID #21 tablet 01/04/20 [Rx] Acetaminophen 650 mg PO BEDTIME 01/05/20 [History] Acetaminophen 650 mg PO Q4H PRN MDD 3 gm 01/05/20 [History] Aloe Vera/Sodium Chloride [[place] Saline Nasal Gel] 1 applic DANN TID 01/05/20 [History] Betamethasone Dipropionate [Diprosone 0.05% Oint] 1 applic TOP BID 01/05/20 [History] Cyclobenzaprine [Flexeril] 10 mg PO BEDTIME 01/05/20 [History] Docusate Sodium [Colace] 100 mg PO DAILY 01/05/20 [History] Insulin Aspart [NovoLOG] 20 units SQ ACDINNER 01/05/20 [History] Insulin Aspart [NovoLOG] 25 units SQ 0730,1130 01/05/20 [History] Loperamide [Imodium] 2 mg PO ASDIRECTED PRN MDD 8MG 01/05/20 [History] Mag Hydrox/Aluminum Hyd/Simeth [Mylanta Maximum Strength Liq] 10 ml PO QID PRN 01/05/20 [History] Magnesium Hydroxide [Milk of Magnesia] 30 ml PO DAILY PRN 01/05/20 [History] Melatonin 10 mg PO BEDTIME 01/05/20 [History] Mirtazapine 15 mg PO BEDTIME 01/05/20 [History] Simethicone 80 mg CHEW DAILY 01/05/20 [History] bisacodyL [Dulcolax] 10 mg RECTAL Q3D PRN 01/05/20 [History] guaiFENesin [Robitussin] 10 ml PO Q4H PRN 01/05/20 [History] Past Medical History HEENT History: Reports: Hard of Hearing, Impaired Vision, Sinusitis Other HEENT History: reading glasses; 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 Cardiovascular History: Reports: High Cholesterol, Hypertension, [place], Other (See Below) Other Cardiovascular History: says had heart attack, was resuscitated, stated from low potassium Respiratory History: Reports: Asthma, Pneumonia, Recurrent, SOB Gastrointestinal History: Reports: Other (See Below) Other Gastrointestinal History: Diverticulitis Genitourinary History: Reports: UTI, Recurrent [employer]GER History: Reports: , Other (See Below) Other OB/BYN History: THREE MISCARRIAGES Musculoskeletal History: Reports: Arthritis, Back Pain, Chronic, Other (See Below) Other Musculoskeletal History: GENERALIZED ARTHRITIS for 30years Psychiatric History: Reports: Anxiety, Depression, Other (See Below) Other Psychiatric History: no longer takes meds for this. NO MEDS FOR DEPRESSION AT PRESENT TIME Endocrine/Metabolic History: Reports: Diabetes, Type II Other Endocrine/Metabolic History: takes long acting and will suppliment with novolog if necessary Hematologic History: Reports: None Immunologic History: Reports: Immunosuppression Oncologic (Cancer) History: Reports: Breast Other Oncologic History: melanoma 5-6 years ago Dermatologic History: Reports: Other (See Below) Other Dermatologic History: melanoma removed 5-6 years ago. RASHES UNDERNEATH WAN. BREASTS AT TIMES. NONE AT PRESENT TIME. - Past Surgical History Cardiovascular Surgical History: Reports: Other (See Below) Female Surgical History: Reports: Breast Biopsy, Tubal Ligation Musculoskeletal Surgical History: Reports: Arthroscopic Knee, Knee Replacement, Other (See Below) Oncologic Surgical History: Reports: Lumpectomy, Other (See Below) Social & Family History - Family History Family Medical History: Unobtainable - Tobacco Use Tobacco Use Status *Q: Unknown Ever Used Tobacco - Caffeine Use Caffeine Use: Reports: Coffee Caffeine Use Comment: 1 cup of coffee everyday H&P Review of Systems - Review of Systems: Review Of Systems: Unable To Obtain Reason Not Obtained: due to speech issues Exam - Exam Exam: See Below - Vital Signs Vital Signs: Last Vital Signs Temp 97.6 F 01/08/20 04:00 Pulse 72 01/08/20 04:00 Resp 16 01/08/20 04:00 BP 130/55 L 01/08/20 04:00 Pulse Ox 97 01/08/20 04:00 Weight: 82.554 kg - Exam General: Alert, Cooperative HEENT: Other (tongue does appear enlarged. ) Lungs: Clear to Auscultation, Normal Respiratory Effort Cardiovascular: Regular Rate, Regular Rhythm GI/Abdominal Exam: Normal Bowel Sounds, Soft, Non-Tender Skin: Warm, Dry, Intact - Patient Data Lab Results Last 24 hrs: Laboratory Results - last 24 hr 01/06/20 01/07/20 01/07/20 Range/Units 12:32 05:45 11:48 POC Glucose 256 H 150 H 217 H (74-100) mg/dL 01/07/20 Range/Units 16:26 POC Glucose 242 H (74-100) mg/dL Result Diagrams: 01/06/20 06:10 01/06/20 06:10 Sepsis Event Note - Evaluation Sepsis Screening Result: No Definite Risk - Focused Exam Vital Signs: Vital Signs Temp Pulse Resp BP Pulse Ox 01/08/20 04:00 97.6 F 72 16 130/55 L 97 01/08/20 00:00 98 F 62 16 142/62 H 100 01/07/20 20:00 97.8 F 62 18 151/65 H 95 Consult PN Assessment/Plan Procedures: Procedures AQUATIC THERAPY/EXERCISES (11/08/15) ASSAY OF CK (CPK) (09/01/14) ASSAY OF MAGNESIUM (12/09/15) ASSAY OF NATRIURETIC PEPTIDE (12/26/19) ASSAY OF TROPONIN QUANT (12/26/19) BLOOD CULTURE FOR BACTERIA (12/09/15) CHEST X-RAY 1 VIEW FRONTAL (12/09/15) CHEST X-RAY 2VW FRONTAL&LATL (09/01/14) COMPLETE CBC AUTOMATED (12/26/19) COMPLETE CBC W/AUTO DIFF WBC (12/09/15) COMPREHEN METABOLIC PANEL (12/09/15) CT HEAD/BRAIN W/O DYE (01/02/20) CT PELVIS W/O DYE (12/09/15) ELECTROCARDIOGRAM TRACING (12/26/19) EMERGENCY DEPT VISIT (12/26/19) EMERGENCY DEPT VISIT (12/09/15) GAIT TRAINING THERAPY (12/09/15) GLUCOSE BLOOD TEST (12/09/15) INITIAL HOSPITAL CARE (12/09/15) MANUAL THERAPY 1/> REGIONS (09/16/15) METABOLIC PANEL TOTAL CA (12/26/19) OT EVALUATION (12/09/15) PHYSICAL MEDICINE PROCEDURE (04/19/17) PROTHROMBIN TIME (12/26/19) PT EVALUATION (12/09/15) ROUTINE VENIPUNCTURE (12/26/19) SELF CARE MNGMENT TRAINING (12/09/15) THER/PROPH/DIAG INJ SC/IM (12/09/15) THER/PROPH/DIAG IV INF ADDON (12/09/15) THER/PROPH/DIAG IV INF INIT (12/26/19) THERAPEUTIC ACTIVITIES (12/09/15) THERAPEUTIC EXERCISES (12/09/15) TX/PRO/DX INJ NEW DRUG ADDON (12/26/19) URINALYSIS AUTO W/O SCOPE (12/09/15) URINALYSIS AUTO W/SCOPE (12/26/19) URINE CULTURE/COLONY COUNT (12/26/19) X-RAY EXAM CHEST 1 VIEW (12/26/19) X-RAY EXAM HIPS BI 2 VIEWS (12/09/15) X-RAY EXAM OF ABDOMEN (12/09/15) X-RAY EXAM OF KNEE 1 OR 2 (12/09/15) (1) Cerebrovascular accident (CVA) of pontine structure SNOMED Code(s): 920366625 Code(s): I63.50 - CEREB INFRC DUE TO UNSP OCCLS OR STENOS OF UNSP CEREB ARTERY Current Visit: Yes (2) Slurred speech SNOMED Code(s): 569427693 Code(s): R47.81 - SLURRED SPEECH Current Visit: Yes Problem List Initiated/Reviewed/Updated: Yes Plan: Do feel that PEG tube is indicated. procedure and risks were explained to the pt to include bleeding, infection, leak. Expressed understanding and asks us to proceed. I will set up for Sunday. In interim would consider NGT with tube feedings. In any event would need to be npo after midnight on Sunday.
[2020-01-08] MEDS: Insulin Lispro 100 Unit/ML 3 ML KwikPen SUBCUT SCH ×3 (08:45→17:58)
[2020-01-08] MEDS: Dexamethasone 4 MG/ML SDV IVPUSH SCH (09:15)
[2020-01-08] MEDS: Sodium Chloride 0.9% 1,000 ML IV SCH (12:10)
[2020-01-08] MEDS: diphenhydrAMINE 50 MG/ML SDV IVPUSH PRN (12:58)
[2020-01-08] MEDS: Sodium Chloride 0.9% 10 ML Syringe FLUSH PRN (13:00)
--- NOTE | 2020-01-08 13:11 | PCM.PN ---
- General Info Date of Service: 01/08/20 Subjective Update: She failed speech therapy swallow evaluation yesterday, recommended feeding tube. NGT until PEG tube can be placed Sunday. Tentatively going [facility] or . She need IV antibiotics until Sunday for Uvulitis and UTI. States her hands & feet itch and legs hurt, sore. - Patient Data Vitals - Most Recent: Last Vital Signs Temp 98.2 F 01/08/20 07:30 Pulse 70 01/08/20 07:30 Resp 26 H 01/08/20 07:30 BP 143/65 H 01/08/20 07:30 Pulse Ox 96 01/08/20 07:30 Weight - Most Recent: 182 lb I&O - Last 24 Hours: Intake & Output 01/07/20 01/08/20 01/08/20 22:59 06:59 14:59 Intake Total 1032 848 475 Balance 1032 848 475 Lab Results Last 24 Hours: Laboratory Results - last 24 hr 01/07/20 Range/Units 16:26 POC Glucose 242 H (74-100) mg/dL Med Orders - Current: Current Medications Acetaminophen (Tylenol) 650 mg RECTAL Q4H PRN PRN Reason: Pain/Fever Last Admin: 01/07/20 10:37 Dose: 650 mg Documented by: Dextrose/Water (Dextrose 50% In Water) 50 ml IVPUSH ASDIRECTED PRN PRN Reason: Hypoglycemia Diphenhydramine HCl (Benadryl) 25 mg IVPUSH Q6H PRN PRN Reason: Allergies Last Admin: 01/04/20 13:25 Dose: 25 mg Documented by: Enoxaparin Sodium (Lovenox) 40 mg SUBCUT Q24H [facility] Last Admin: 01/07/20 12:00 Dose: 40 mg Documented by: Glucagon (Glucagen) 1 mg IM ASDIRECTED PRN PRN Reason: Hypoglycemia Ampicillin Sodium/Sulbactam (Sodium 1.5 gm/ Sodium Chloride) 50 mls @ 150 mls/hr IV Q8H [facility] Last Admin: 01/08/20 04:36 Dose: 150 mls/hr Documented by: Sodium Chloride (Normal Saline) 1,000 mls @ 50 mls/hr IV ASDIRECTED [facility] Last Admin: 01/08/20 12:10 Dose: 50 mls/hr Documented by: Insulin Human Lispro (Humalog) 0 unit SUBCUT TIDMEALS [facility]; Protocol Last Admin: 01/08/20 08:45 Dose: Not Given Documented by: Sodium Chloride (Saline Flush) 10 ml FLUSH ASDIRECTED PRN PRN Reason: Keep Vein Open Last Admin: 01/04/20 13:24 Dose: 10 ml Documented by: Discontinued Medications Ceftriaxone Sodium (Rocephin) 1 gm IVPUSH NOW STA Stop: 01/04/20 00:08 Last Admin: 01/04/20 00:19 Dose: 1 gm Documented by: Dexamethasone (Decadron) 8 mg IVPUSH ONETIME ONE Stop: 01/04/20 09:01 Last Admin: 01/04/20 09:27 Dose: 8 mg Documented by: Dexamethasone (Dexamethasone) 6 mg IVPUSH DAILY [facility] Stop: 01/07/20 09:01 Last Admin: 01/05/20 09:37 Dose: 6 mg Documented by: Dexamethasone (Decadron) 6 mg IVPUSH DAILY [facility] Stop: 01/08/20 09:01 Last Admin: 01/08/20 09:15 Dose: Not Given Documented by: Sodium Chloride (Normal Saline) 500 mls @ 500 mls/hr IV .BOLUS ONE Stop: 01/04/20 01:02 Last Admin: 01/04/20 00:10 Dose: 500 mls/hr Documented by: Sodium Chloride (Normal Saline) 1,000 mls @ 100 mls/hr IV ASDIRECTED [facility] Last Admin: 01/07/20 23:05 Dose: 100 mls/hr Documented by: Ampicillin Sodium/Sulbactam (Sodium 1.5 gm/ Sodium Chloride) 50 mls @ 150 mls/hr IV Q8H [facility] Last Admin: 01/04/20 21:41 Dose: Not Given Documented by: Iopamidol (Isovue-370 (76%)) 75 ml IV ONETIME ONE Stop: 01/03/20 23:09 Last Admin: 01/03/20 23:12 Dose: Not Given Documented by: Iopamidol (Isovue-370 (76%)) 100 ml IV ONETIME ONE Stop: 01/03/20 23:14 Last Admin: 01/03/20 23:15 Dose: 75 ml Documented by: - Exam General: Alert, No Acute Distress HEENT: Pupils Equal, Pupils Reactive Lungs: Clear to Auscultation, Normal Respiratory Effort Cardiovascular: Regular Rate, Regular Rhythm GI/Abdominal Exam: Soft, Non-Tender, No Distention, Abnormal Bowel Sounds (hypoactive to normal) Extremities: No Pedal Edema Skin: Rash (dry, sandpaper macular rash on bilateral palms and feet.) Sepsis Event Note - Evaluation Sepsis Screening Result: Sepsis Risk - Focused Exam Vital Signs: Vital Signs Temp Temp Pulse Pulse Resp BP Pulse Ox 01/08/20 07:30 98.2 F 70 26 H 143/65 H 96 01/08/20 04:00 97.6 F 72 16 130/55 L 97 - Problem List & Annotations (1) Cerebrovascular accident (CVA) of pontine structure SNOMED Code(s): 274444685 Code(s): I63.50 - CEREB INFRC DUE TO UNSP OCCLS OR STENOS OF UNSP CEREB ARTERY Status: Acute Current Visit: Yes (2) Uvulitis SNOMED Code(s): 513261722 Code(s): K12.2 - CELLULITIS AND ABSCESS OF MOUTH Status: Acute Current Visit: Yes (3) Acute hearing loss SNOMED Code(s): 47026119, 84081686 Code(s): H91.90 - UNSPECIFIED HEARING LOSS, UNSPECIFIED EAR Status: Acute Current Visit: Yes (4) Dysphagia SNOMED Code(s): 29971405, 704495254 Code(s): R13.10 - DYSPHAGIA, UNSPECIFIED Status: Acute Current Visit: Yes Qualifiers: Dysphagia type: oral phase Qualified Code(s): R13.11 - Dysphagia, oral phase (5) Rapidly progressive weakness SNOMED Code(s): 53678888 Code(s): R53.1 - WEAKNESS Status: Acute Current Visit: Yes (6) Slurred speech SNOMED Code(s): 965501796 Code(s): R47.81 - SLURRED SPEECH Status: Acute Current Visit: Yes (7) History of total knee arthroplasty SNOMED Code(s): 1575601228282, 6785224397891, 82213103213296 Code(s): Z96.659 - PRESENCE OF UNSPECIFIED ARTIFICIAL KNEE JOINT Status: Chronic Priority: High Current Visit: No (8) Uncontrolled diabetes mellitus type 2 with peripheral artery disease SNOMED Code(s): 32762259, 867751566 Code(s): E11.51 - TYPE 2 DIABETES W DIABETIC PERIPHERAL ANGIOPATH W/O GANGRENE; E11.65 - TYPE 2 DIABETES MELLITUS WITH HYPERGLYCEMIA Status: Chronic Current Visit: No (9) Combined hyperlipidemia SNOMED Code(s): 190218202 Code(s): E78.2 - MIXED HYPERLIPIDEMIA Status: Chronic Current Visit: No (10) Obesity (BMI 30-39.9) SNOMED Code(s): 523717288, 372340188 Code(s): E66.9 - OBESITY, UNSPECIFIED Status: Chronic Current Visit: No - Problem List Review Problem List Initiated/Reviewed/Updated: Yes - My Orders Last 24 Hours: My Active Orders 01/08/20 06:00 Notify Provider Consults [RC] ASDIRECTED Consult to Physician [CONS] Routine 01/08/20 Breakfast NPO [Nothing Per Oral Diet] [DIET] 01/08/20 09:44 Abdomen 1V Flat [CR] Stat Chest 1V Frontal [CR] Stat NG [Nasogastric Orogastric Tube Insertion] [OM.PC] Routine 01/08/20 09:48 Consult to Dietary [Consult to Silk Spotter] [CONS] Routine 01/08/20 10:30 Convert IV to Saline Lock [OM.PC] Routine 01/08/20 12:10 Sodium Chloride 0.9% [Normal Saline] 1,000 ml IV ASDIRECTED 01/09/20 06:00 BASIC METABOLIC PANEL,BMP [CHEM] Routine CBC WITH AUTO DIFF [HEME] Routine - Plan Plan:: 1. Pontine CVA on MRI: speech therapy today. NGT until PEG tube placement on Sunday. Dietary consult for tube feeding. 2. Uvulitis: Unasyn 1.5 g IV q6h will finish Sunday. Dexamethasone 6 mg IV daily, last dose tomorrow. Benadryl 25 mg IV q6h as needed. NS at 50 ml/hr. 3. UTI: Urine culture(in chart) enterococcus, sensitive to ampicillin, day 4 4. Dysphagia: most likely secondary to #1, Speech therapy consult recommended feeding tube and further speech therapy as her tongue is flaccid and may need electric stimulation. 5. DM: monitor blood sugars, and SSI as needed. 6. Diet will keep clears and do nursing bedside attempts with swallowing until speech can see her. 7. Will need intermediate placement, patient would prefer [facility].
[2020-01-08] MEDS: Enoxaparin 40 MG/0.4 ML Syringe SUBCUT SCH (13:31)
[2020-01-08] MEDS ORDERED: diphenhydrAMINE 50 MG/ML SDV IVPUSH PRN (15:36)
[2020-01-08] MEDS ORDERED: Lidocaine 2% HCl 6 ML JEL.PF.APP ONE (16:34)
[2020-01-08] MEDS: Betamethasone Dipropionate/Clotrimazole 0.05-1% Crm 15 GM Tube TOP SCH ×2 (16:36→20:58)
--- NOTE | 2020-01-08 17:54 | CR ---
INDICATION: Confirm NG placement. A portable view of the chest/abdomen was obtained and revealed nasogastric tube tip to be in the area of the distal-most esophagus at the esophagogastric junction or perhaps very minimally into the fundus of the stomach. It should be advanced approximately 10 cm for better positioning. Report was called to the Floor for Dr. Alfaro at 1534 hours. MTDD
[2020-01-09] MEDS: Ampicillin/Sulbactam Na 1.5 GM in Sodium Chloride 0.9% 50 ML IV SCH ×3 (04:51→20:18)
--- NOTE | 2020-01-09 07:52 | CR ---
INDICATION: Confirm nasogastric tube placement. ABDOMEN SINGLE VIEW: Supine view of the abdomen with additional view of the chest were obtained 01/08/20 and compared with 01/03/20 now revealing a nasogastric tube in place with its tip in a third or fourth order bronchus of the left lung. No consolidating pneumonia, effusion or atelectasis was identified. The heart appears enlarged, the aorta tortuous with calcification in the arch as previously. IMPRESSION: Nasogastric tube tip in the left lung within a bronchus. Report was called to Peg on the floor for Dr. Alfaro at 1300 hours. DIANAD
[2020-01-09] MEDS: Insulin Lispro 100 Unit/ML 3 ML KwikPen SUBCUT SCH ×3 (08:12→17:52)
[2020-01-09] MEDS: Betamethasone Dipropionate/Clotrimazole 0.05-1% Crm 15 GM Tube TOP SCH ×2 (08:30→20:17)
[2020-01-09] MEDS: Sodium Chloride 0.9% 1,000 ML IV SCH (08:31)
--- NOTE | 2020-01-09 11:12 | PN ---
DATE SEEN: 01/09/2020 SUBJECTIVE: Jessica Vega is an 79-year-old female, had resided at [facility]. Presented with a complicated stroke resulting in some visual field defects, loss of hearing, core issues, and ataxia. PT actively been involved. Swelling is the primary issue. Scheduled for placement of a PEG feeding tube on Sunday, the . Feeding tube presently in place. Nutrition actively involved. COVID negative. Also being treated for urinary tract infection. MEDICATIONS: Onboard include: 1. Ampicillin sulbactam. 2. Lovenox. 3. Insulin therapy. OBJECTIVE: VITAL SIGNS: 36.6, 71, 151/72, 98, 20, and 94. HEENT: Markedly hard of hearing. Speech is dysarthric. NECK: Benign. Thyroid small. CHEST: Clear in all lung barba. HEART: No ectopy or murmur. ABDOMEN: Benign. Feeding tube in place. IMPRESSION: Cerebrovascular accident with marked impairment. PLAN: Medications onboard, treatment as appropriate. Feeding tube in place. Comfort care and feeding tube over the weekend. Plans to be in [facility] in the future. /[id number] 1104 /RIRI
[2020-01-09] MEDS: Enoxaparin 40 MG/0.4 ML Syringe SUBCUT SCH (15:01)
[2020-01-09] MEDS: Sodium Chloride 0.9% 10 ML Syringe FLUSH PRN (19:52)
[2020-01-09] MEDS: Bisacodyl 10 MG Supp RECTAL PRN (22:00)
[2020-01-10] MEDS: Ampicillin/Sulbactam Na 1.5 GM in Sodium Chloride 0.9% 50 ML IV SCH ×3 (04:42→20:32)
[2020-01-10] MEDS: Insulin Lispro 100 Unit/ML 3 ML KwikPen SUBCUT SCH ×5 (06:45→17:29)
[2020-01-10] MEDS: Betamethasone Dipropionate/Clotrimazole 0.05-1% Crm 15 GM Tube TOP SCH ×2 (08:26→20:08)
--- NOTE | 2020-01-10 11:09 | PN ---
DATE SEEN: 01/10/2020 SUBJECTIVE: Jessica Vega is an 79-year-old female admitted with some marked change in health and well being. Presented with dysphagia, slurred speech. CT scan was negative, though MRI revealed a deep acute ischemic brainstem affecting the jihan. Atrophy and interval changes. Ability to eat has been compromised. An NG tube is present in place providing appropriate feedings. Plan is for a PEG placement on 01/12/2020. LABORATORY STUDIES: 01/09/2020, white count 74142, hemoglobin 13.4, potassium 3.1, glucose is 179, 270, 245, . Had been on Tresiba and NovoLog prior to, we will reinstitute post PEG tube placement. Up to 50 mL with 6 ounces of water twice daily. OBJECTIVE: VITAL SIGNS: 36.7, 74, 160/76, 18, and 96. GENERAL: Some dysarthric noncommunicative speech. NECK: Benign. Thyroid small. CHEST: Clear in all lung barba. HEART: On auscultation, occasional ectopy, soft murmur. ABDOMEN: Distended. NG tube in proper position. ASSESSMENT: Acute cerebrovascular accident, brainstem. PLAN: Medications, care, and treatment appropriate. Feedings in place, placement of tube and then long-term care indicated. /[id number] [id number] DIANELYS/RIRI
[2020-01-10] MEDS: Enoxaparin 40 MG/0.4 ML Syringe SUBCUT SCH (13:31)
[2020-01-10] MEDS ORDERED: Glucagon,Human Recombinant 1 MG Vial IM PRN (17:16)
[2020-01-10] MEDS ORDERED: 50% Dextrose in Water 50 ML Syringe IVPUSH PRN (17:16)
[2020-01-10] MEDS ORDERED: Insulin Glargine,Human Rec. Analog 100 Units/ML 3 ML Pen SUBCUT ONE (20:16)
[2020-01-10] MEDS: Bisacodyl 10 MG Supp RECTAL PRN (20:19)
[2020-01-10] MEDS: Sodium Chloride 0.9% 10 ML Syringe FLUSH PRN (20:39)
[2020-01-10] MEDS ORDERED: Insulin Glargine,Human Rec. Analog 100 Units/ML 3 ML Pen SUBCUT SCH (21:00)
[2020-01-11] MEDS: Ampicillin/Sulbactam Na 1.5 GM in Sodium Chloride 0.9% 50 ML IV SCH ×2 (05:16→13:04)
[2020-01-11] MEDS ORDERED: Glucagon,Human Recombinant 1 MG Vial IM PRN (10:24)
[2020-01-11] MEDS ORDERED: 50% Dextrose in Water 50 ML Syringe IVPUSH PRN (10:24)
[2020-01-11] MEDS ORDERED: cloNIDine 0.1 MG/Day Transdermal Patch TRDERM SCH (10:30)
[2020-01-11] MEDS: Betamethasone Dipropionate/Clotrimazole 0.05-1% Crm 15 GM Tube TOP SCH ×2 (10:32→20:41)
[2020-01-11] MEDS: Insulin Lispro 100 Unit/ML 3 ML KwikPen SUBCUT SCH ×5 (10:37→17:29)
--- NOTE | 2020-01-11 10:46 | PN ---
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 Inability to eat noted. Nasogastric feeding is in place, advancing as appropriate. Sugars have been markedly elevated from 327, 245, 390, and 464. She is on high dose pre-meal sliding scale insulin, was started on 20 mg of Lantus last evening. We will proceed with intervention and care. Oral cares of concern. LABORATORY STUDIES: 01/11/2020, 7 a.m., 464 sugar. OBJECTIVE: VITAL SIGNS: 36.7, 73, 20, 92% on room air. GENERAL: An NG tube in place. Speech was a bit dysarthric. CHEST: Clear in all lung barba. HEART: No ectopy or murmur. ABDOMEN: Benign. No obvious focal weakness. ASSESSMENT: Brain stem stroke, feeding difficulties. PLAN: Feeding tube will be placed per PEG tomorrow. We will add regular doses of Lantus and pre-meal Humalog. Blood sugars closely intervention and care, we will start a Catapres 0.2 mg patch weekly. /[id number] [id number] DIANELYS/RIRI
[2020-01-11] MEDS: Enoxaparin 40 MG/0.4 ML Syringe SUBCUT SCH (12:36)
[2020-01-11] MEDS ORDERED: Insulin Glargine,Human Rec. Analog 100 Units/ML 3 ML Pen SUBCUT SCH (21:00)
[2020-01-12] MEDS ORDERED: 50% Dextrose in Water 50 ML Syringe IVPUSH PRN ×2 (10:12→10:15)
[2020-01-12] MEDS ORDERED: Glucagon,Human Recombinant 1 MG Vial IM PRN ×2 (10:12→10:15)
[2020-01-12] MEDS: Betamethasone Dipropionate/Clotrimazole 0.05-1% Crm 15 GM Tube TOP SCH ×2 (10:23→20:57)
[2020-01-12] MEDS: Lactated Ringers 1,000 ML IV SCH ×2 (10:28→16:27)
[2020-01-12] MEDS ORDERED: Lidocaine 2% 5 ML SDV INJECT ONE (10:29)
[2020-01-12] MEDS ORDERED: Labetalol 100 MG/20 ML MDV IV ONE (10:29)
[2020-01-12] MEDS ORDERED: Propofol 200 MG/20 ML SDV IV ONE (10:29)
--- NOTE | 2020-01-12 10:55 | CR ---
INDICATION: Tube placement. CHEST, ONE VIEW: An AP portable upright view of the chest was obtained 01/11/20 at 2108 hours and compared with 01/08/20. A nasogastric tube is noted in place but its tip is not definitely visualized on this image. It would appear to be at the level of the mid heart. No definite change in the appearance of the lungs is seen with no definite acute process although the upper lung field pulmonary vasculature is slightly prominent raising question of a mild degree of CHF. MTDD
--- NOTE | 2020-01-12 10:59 | CR ---
INDICATION: Wheezing. CHEST, ONE VIEW: A single AP upright portable view of the chest was obtained 01/11/20 at 2133 hours, and was compared with same date chest from 2108 hours. The presence of a different nasogastric tube is suggested with its tip at the esophagogastric junction, perhaps just within the gastric fundus. It should be advanced approximately 10 cm for better positioning. The lungs are not well visualized due to over penetration. MTDD
--- NOTE | 2020-01-12 11:10 | PN ---
DATE SEEN: 01/12/2020 SUBJECTIVE: Jessica Vega is an 79-year-old female admitted from the [facility]. Presented with midbrain pontine stroke. Host of issues including feeding difficulties, swallowing difficulties, speech impairment. Ambulation has been limited. Plan is to go to [facility]. Feeding tube, PEG tube will be placed by Dr. Matt today. We will begin with cyclical evening feedings. Insulin dose has been increasingly greater requirement and will increase accordingly. Laboratory sugars of consequence last 24 hours of 464, 524, 435. OBJECTIVE: VITAL SIGNS: 36.6, 71, 189/90, mean blood pressure 123, oxygen 92% on 2 L. GENERAL: Appears comfortable. No obvious distress. Speech was convoluted and difficult. No other focal neurological findings. Generalized weakness. CHEST: Clear. HEART: Regular. ABDOMEN: Benign. Feeding tube in place. ASSESSMENT: Mid brain stroke and implications. PLAN: We will switch from nasogastric to planned PEG feedings. We will increase her premeal Humalog from 15 to 20, her Lantus from 30 to 40, watch sugars closely. CBC, panel 8 and A1c will be performed. /[id number] [id number] DIANELYS/RIRI
[2020-01-12 11:12] LABS: HEMOGLOBIN A1C 8.6 % (<5.7)
--- NOTE | 2020-01-12 11:39 | PCM.OPNOTE ---
- General Post-Op/Procedure Note Date of Surgery/Procedure: 01/12/20 Operative Procedure(s): peg placement Findings: 20 fr PLACED WITHOUT DIFFICULTY. Pre Op Diagnosis: STROKE WITH INABLILITY TO SWALLOW Post-Op Diagnosis: Same Anesthesia Technique: Local (3 ML 1 % LIDO), MAC Primary Surgeon: Senthil Matt Anesthesia Provider: Migdalia Moore EBL in mLs: 1 Complications: NONE Condition: Fair Free Text/Narrative:: Intake & Output 01/11/20 01/12/20 01/12/20 22:59 06:59 14:59 Intake Total 1111 726 Balance 1111 726 SEE DICTATION
[2020-01-12] MEDS: Insulin Lispro 100 Unit/ML 3 ML KwikPen SUBCUT SCH ×4 (12:10→17:40)
[2020-01-12] MEDS ORDERED: Metoprolol Succinate 25 MG Tab.ER PO SCH (12:15)
[2020-01-12] MEDS ORDERED: cloNIDine 0.1 MG/Day Transdermal Patch TRDERM ONE (12:30)
--- NOTE | 2020-01-12 13:13 | OR ---
DATE OF OPERATION: 01/12/2020 SURGEON: Senthil Matt MD PROCEDURE PERFORMED: Percutaneous endoscopic gastrostomy tube placement. PREOPERATIVE DIAGNOSIS: Inability to swallow secondary to stroke. POSTOPERATIVE DIAGNOSIS: Inability to swallow secondary to stroke. ANESTHESIA: General. INTRAOPERATIVE FINDINGS: A Ponsky Deluxe Pull PEG was used. This was a 20- Malt[place] in size with a reference #[id number], lot #[id number]. This is manufactured by [employer]. The expiration date is . INDICATIONS FOR PROCEDURE: Ms. Vega is an 79-year-old white female who recently sustained a stroke, and as a result, has extreme difficulty swallowing and in fact failed her swallowing test by Speech Pathology. She has been fed via NG tube. However, a PEG tube had been requested to meet her nutritional needs. DESCRIPTION OF PROCEDURE: After an excellent IV sedation was administered, the bite block was inserted. Flexible endoscope was passed without difficulty down the patient's esophagus into the stomach. The stomach was transilluminated through the abdominal wall, and a point along just anterior to the lesser curve was identified easily. This was then prepped, draped, and infiltrated with 3 mL of 1% lidocaine. A stab incision was then made with a #11 scalpel blade, and the introducing catheter was then passed through the middle of the incision, all done under direct visualization. The guidewire was then passed, grasped with loop snare, and brought out through the patient's mouth. The PEG was then looped around the end of the delivery loop and then brought out through the anterior abdominal wall without difficulty. The bolster and lock were then passed down the catheter itself as well as the feeding connector. The scope was then reintroduced, and under direct visualization, the catheter was placed under the correct tension. This was then sewn into position with interrupted 0 prolene around the bolster in 3 parts with the superior suture actually looped around the catheter as well to prevent inadvertent avulsion by the patient. Dressing was applied. The patient tolerated the procedure well and was taken back to Recovery. /[id number] /MODL
[2020-01-12] MEDS: hydrALAZINE 25 MG Tab PO SCH ×2 (14:27→20:54)
[2020-01-12] MEDS: Metoprolol Succinate 25 MG Tab.ER PO SCH (20:55)
[2020-01-12] MEDS ORDERED: Insulin Glargine,Human Rec. Analog 100 Units/ML 3 ML Pen SUBCUT SCH (21:00)
[2020-01-13] MEDS: Lactated Ringers 1,000 ML IV SCH (00:05)
[2020-01-13] MEDS: Insulin Lispro 100 Unit/ML 3 ML KwikPen SUBCUT SCH ×2 (08:50→08:51)
[2020-01-13] MEDS: Betamethasone Dipropionate/Clotrimazole 0.05-1% Crm 15 GM Tube TOP SCH (08:51)
[2020-01-13] MEDS: hydrALAZINE 25 MG Tab PO SCH (08:52)
[2020-01-13] MEDS: Metoprolol Succinate 25 MG Tab.ER PO SCH (08:52)
[2020-01-13 08:54] VITALS: BP 151/75; PULSE 88
--- NOTE | 2020-01-14 10:00 | DISCH ---
DISCHARGE DATE: 01/13/2020 DIAGNOSES: 1. Midbrain brainstem cerebrovascular accident with resultant dysphagia. 2. Dysarthric speech. 3. Difficulty swallowing. 4. Motor impairment. HISTORY OF PRESENT ILLNESS: Jessica Vega is an 79-year-old female admitted to [place] from the [facility]. Complained of dysphagia, slurred speech, generalized weakness. CAT scan was negative. MRI revealed evidence of a brainstem stroke consistent with the clinical findings and recommendations. Exam on admission, please see Dr. Alfaro's history and physical. Laboratory studies of significance, multiple laboratory studies were unremarkable, moderately decreased renal function, markedly elevated sugars, which required active intervention. PT/OT was involved. Issues of swallowing were problematic. Nasogastric feeding tube was placed during her hospital stay. This was converted on 01/12/2020 to a PEG button per Dr. Matt. No complicating issues at that time. Plan is to discharge to [facility]. PHYSICAL EXAMINATION: VITAL SIGNS: 69, 146/76, 20, 93% on room air. GENERAL: Young lady who was aware of her environment. Speech was gated difficult and problematic. HEENT: Funduscopic benign. Bright TMs. Clear nasal discharge. Mouth and oropharynx clear. CHEST: Clear in all lung barba. HEART: No ectopy or murmur. BREASTS: Atrophic without masses. ABDOMEN: Benign. No hepatosplenomegaly. Pain in right upper quadrant, good condition in position. No hepatosplenomegaly. No adenopathy. LABORATORY DATA: Discharge lab, most recent lab 01/13/2020, hemoglobin 13.9, hematocrit 39.8, white count 11,700, potassium 3.3, creatinine 0.9, glucose markedly elevated. PLAN: Discharge to [facility]. PT/OT, feeding, speech therapy, aggressive observation of diabetes control. /[id number] [id number] /RIRI
[2020-01-18] MEDS ORDERED: cloNIDine 0.1 MG/Day Transdermal Patch TRDERM SCH (10:30)
== END 2020-01-13 10:30 | DRG 65 ==
LOC: FB.ED 22:01 → FB.MS 01-04 09:06
PROVIDERS: ADMIT Emergency Medicine; ATTEND Family Medicine
PROC: 0DH63UZ Insertion of Feeding Device into Stomach, Percutaneous Approach (ICD-10-PCS; principal; 2020-01-12)
DX: I63.50 Cerebral infarction due to unspecified occlusion or stenosis of unspecified cerebral artery (principal); K12.2 Cellulitis and abscess of mouth; N39.0 Urinary tract infection, site not specified; R27.0 Ataxia, unspecified; H53.9 Unspecified visual disturbance; R47.81 Slurred speech; H91.90 Unspecified hearing loss, unspecified ear; R13.11 Dysphagia, oral phase; Z20.828 Contact with and (suspected) exposure to other viral communicable diseases; R53.1 Weakness; J45.909 Unspecified asthma, uncomplicated; K57.90 Diverticulosis of intestine, part unspecified, without perforation or abscess without bleeding; Z87.440 Personal history of urinary (tract) infections; Z87.01 Personal history of pneumonia (recurrent); Z96.659 Presence of unspecified artificial knee joint; E11.51 Type 2 diabetes mellitus with diabetic peripheral angiopathy without gangrene; E78.5 Hyperlipidemia, unspecified; E66.9 Obesity, unspecified; E78.2 Mixed hyperlipidemia; E11.9 Type 2 diabetes mellitus without complications; D84.9 Immunodeficiency, unspecified; Z85.820 Personal history of malignant melanoma of skin; B95.2 Enterococcus as the cause of diseases classified elsewhere; Z66 Do not resuscitate; R29.2 Abnormal reflex; H54.8 Legal blindness, as defined in USA; E78.00 Pure hypercholesterolemia, unspecified; E11.65 Type 2 diabetes mellitus with hyperglycemia; I10 Essential (primary) hypertension; M19.90 Unspecified osteoarthritis, unspecified site; M54.9 Dorsalgia, unspecified; G89.29 Other chronic pain; F32.9 Major depressive disorder, single episode, unspecified; F41.9 Anxiety disorder, unspecified; Z79.4 Long term (current) use of insulin; I25.2 Old myocardial infarction; Z79.899 Other long term (current) drug therapy; Z79.82 Long term (current) use of aspirin; Z68.31 Body mass index [BMI] 31.0-31.9, adult
CPT/HCPCS: 00731-QZ; 36415; 70450; 70491; 70551; 71045; 71046; 74018; 80048; 80053; 80061; 82947; 82962; 83036; 83605; 84484; 85025; 85027; 86140; 87651-QW; 92610-GN; 94760; 96374; 97110-GO; 97110-GP; 97162-GP; 97165-GO; 97530-GO; 97530-GP; 99284; 99285-25; A9270-GY; J0287; J0295; J0696; J1100; J1200; J1650; J1815; J1815-GY; J2001; J2704; J3490; J7030; J7040; J7050; J7120; Q9967; U0002